=== PATIENT | female | born 1930 | race Caucasian/White ===

== ENCOUNTER 2016-09-16 11:56 | Inpatient (IN) | payer MEDICARE, BC ==
[2016-09-16] MEDS ORDERED: DUONEB 0.5-3 MG/3 ml Neb IH ONE ×2 (12:14→12:20)
--- NOTE | 2016-09-16 12:14 | ERPHSYRPT ---
- History of Present Illness Time Seen by Provider: 09/16/16 12:10 Source: patient, EMS, senior care records Exam Limitations: other (dementia) Physician History: This is a 86-year-old white female sent from the senior care with complaints of wheezes shortness of breath symptoms for 3 days. Patient had apparently recently finished Macrobid and Tamiflu secondary to influenza. Patient was noted to have increasing shortness of breath cough, worsening of confusion. Therefore sent in for evaluation. Patient arrives she is alert to her name and her birthday. She denies any pain she states she is short of breath she has obvious loose cough and is mildly tachypneic. Past medical history includes dementia, coronary artery disease, hypercholesterolemia, high blood pressure, COPD, diabetes type 2, hypothyroidism , depression, overactive bladder, sleep apnea, diabetic neuropathy, angina, colon cancer.. Past surgical history includes appendectomy, colon resection, hysterectomy. Social history patient does not have a history of tobacco alcohol or illicit drug use. Timing/Duration: day(s) (3 days) Activities at Onset: none Severity of Dyspnea-Max: moderate Severity of Dyspnea-Current: moderate Possible Cause: occasional episodes (recently treated for influenza) Modifying Factors: Improves With: nothing Associated Symptoms: cough, productive cough, No chest pain/discomfort, No edema , No fever, No insomnia, No lightheadedness, No weakness, No ankle swelling, No chills, No calf pain, No heaviness, No heart racing, No lightheadedness International travel in last 2 weeks: No Allergies/Adverse Reactions: cephalexin Allergy (Verified 09/16/16 13:35) codeine Allergy (Verified 09/16/16 13:35) latex Allergy (Verified 09/16/16 13:35) meperidine Allergy (Verified 09/16/16 13:35) Sulfa (Sulfonamide Antibiotics) Allergy (Verified 09/16/16 13:35) Home Medications: Acetaminophen 325 mg [Tylenol 325 mg] 650 mg PO Q4-6HPRN PRN 09/15/15 [ History] Atorvastatin Calcium 80 mg PO HS 09/15/15 [History] Bifidobacterium Infantis [Align] 4 mg PO DAILY 09/15/15 [History] Cholestyramine Light 4 gm [QUESTRAN Light 4 GM Packet] 4 gm PO DAILY PRN PRN 09/15/15 [History] Gabapentin 100 mg PO HS 09/15/15 [History] Insulin Detemir [Levemir Flexpen] 40 unit SQ DAILY 09/15/15 [History] Isosorbide Mononitrate 60 mg [Imdur 60MG] 60 mg PO DAILY 09/15/15 [History] Levothyroxine Sodium [Synthroid] 200 mcg PO DAILY 09/15/15 [History] Loperamide HCl [Imodium A-D] 2 mg PO DAILY PRN PRN 09/15/15 [History] Losartan Potassium [Cozaar] 100 mg PO DAILY 09/15/15 [History] Memantine HCl [Namenda Xr] 7 mg PO HS 09/15/15 [History] Mirabegron [Myrbetriq] 25 mg PO DAILY 09/15/15 [History] Nebivolol HCl [Bystolic] 10 mg PO BID 09/15/15 [History] Potassium Chloride 10 Meq Tab* [Klor Con 10 MEQ] 10 meq PO DAILY 09/15/15 [ History] Torsemide [Demadex] 5 mg PO DAILY 09/15/15 [History] Ubidecarenone [Coenzyme Q10] 100 mg PO DAILY 09/15/15 [History] Venlafaxine HCl [Effexor Xr] 150 mg PO BID 09/15/15 [History] Hx Tetanus, Diphtheria Vaccination/Date Given: No Hx Influenza Vaccination/Date Given: No Hx Pneumococcal Vaccination/Date Given: Yes - Review of Systems Constitutional: No Fever, No Chills Eyes: No Symptoms Ears, Nose, & Throat: No Symptoms, No Ear Pain, No Ear Discharge, No Hearing Changes, No Tinnitus, No Nose Pain, No Nose Congestion, No Nose Discharge, No Sinus Drainage, No Epistaxis, No Mouth Pain, No Mouth Swelling, No Loose Teeth, No Throat Pain, No Throat Swelling, No Hoarse, No Painful Swallowing, No Snoring Respiratory: Cough, Dyspnea Cardiac: No Chest Pain, No Edema, No Syncope Abdominal/Gastrointestinal: No Abdominal Pain, No Nausea, No Vomiting, No Diarrhea Genitourinary Symptoms: No Symptoms Musculoskeletal: No Back Pain, No Neck Pain Skin: No Rash Neurological: No Dizziness, No Focal Weakness, No Sensory Changes Psychological: No Symptoms Endocrine: No Symptoms All Other Systems: Unable due to condition (patient with complaint of shortness and cough denies pain patient does have a history of dementia) - Past Medical History Pertinent Past Medical History: Yes Neurological History: Dementia Cardiac History: Coronary Artery Disease, High Cholesterol, Hypertension Respiratory History: COPD Endocrine Medical History: Diabetes Type II, Hypothyroidism Musculoskeletal History: No Pertinent History GI Medical History: No Pertinent History History: No Pertinent History Psycho-Social History: Depression Female Reproductive Disorders: No Pertinent History Other Medical History: overactive bladder, sleep apnea, diabetic neuropathy, angina, colon CA - Past Surgical History Past Surgical History: No Gastrointestinal: Appendectomy, Colon Resection Female Surgical History: Hysterectomy Other Surgical History: unknown - Social History Smoking Status: Never smoker Exposure to second hand smoke: No Drug Use: none Patient Lives Alone: No (senior care) - Nursing Vital Signs Nursing Vital Signs: Initial Vital Signs Temperature 98 F Temperature Source Oral Pulse Rate 85 Respiratory Rate 20 Blood Pressure [] 140/65 Pain Intensity 0 - Physical Exam General Appearance: moderate distress, alert Eye Exam: PERRL/EOMI, other (fundi unremarkable) Ears, Nose, Throat Exam: hearing grossly normal, normal ENT inspection, normal pharynx, No abnormal TM (R), No abnormal TM (L), No sinus pain/drainage, No hearing decreased, No nasal congestion, No pharyngeal erythema, No tonsillar exudate, No tonsillar swelling Neck Exam: normal inspection, non-tender, supple Respiratory Exam: diminished breath sounds, rhonchi, wheezing Cardiovascular/Chest Exam: normal heart sounds, regular rate/rhythm Abdominal/Gastrointestinal Exam: soft, No tenderness, No distention, No mass Extremity Exam: non-tender, normal range of motion, normal inspection, no calf tenderness, no pedal edema Peripheral Pulses Exam: dorsalis-pedis (R): 2+, dorsalis-pedis (L): 2+ Neurologic Exam: alert, interpretive program coordinator II-XII nml as tested, sensation nml, confusion, No oriented x 3 (oriented to person), No motor deficits, No motor weakness Skin Exam: normal color, warm, No dry SpO2 Interpretation: normal (95% on 3l) - Course Nursing assessment & vital signs reviewed: Yes EKG Interpreted by Me: RATE (68 bpm), Sinus Rhythm, NORMAL AXIS, Other (EKG, sinus rhythm, 68 bpm, normal axis, no acute ST or T wave changes, essentially normal EKG compared to September 15, 2015) - Radiology Exams Chest X-ray Interpretation: Discussed w/ radiologist (Chest x-ray:new left base infiltrate/atelectasis correlate clinically) Ordered Tests: Active Orders 24 hr Category Date Time Status Drawer Maker STAT Care 09/16/16 12:14 Active EKG-ER Only STAT Care 09/16/16 12:14 Active IV Insertion STAT Care 09/16/16 12:14 Active Oxygen-ED Only NASAL CANNULA 3 lpm Care 09/16/16 12:14 Active cath [Cath for Specimen-Straight] STAT Care 09/16/16 12:48 Active CHEST 1 VIEW (PORTABLE) Stat Exams 09/16/16 12:14 Completed BLOOD CULTURE Stat Lab 09/16/16 12:30 Received CBC W DIFF Stat Lab 09/16/16 12:25 Completed CMP Stat Lab 09/16/16 12:25 Results CULTURE,SPUTUM Stat Lab 09/16/16 12:14 Uncollected Lactic Acid Urgent Lab 09/16/16 12:14 Completed Manual Differential NC Stat Lab 09/16/16 12:25 Completed NT PRO BNP Stat Lab 09/16/16 12:25 Results TROPONIN Stat Lab 09/16/16 12:25 Results UA W/ MICROSCOPIC Stat Lab 09/16/16 12:50 Completed VENOUS BLOOD GAS Urgent Lab 09/16/16 12:14 Completed Respiratory Nebulizer STAT RT 09/16/16 12:15 Completed Medication Summary Generic Name Dose Route Start Last Admin Trade Name Freq PRN Reason Stop Dose Admin Levofloxacin/Dextrose 100 mls @ 100 mls/hr 09/16/16 13:03 Levofloxacin 500mg/100ml D5w IV 09/16/16 14:02 STAT ONE Sodium Chloride 1,000 mls @ 100 mls/hr 09/16/16 13:30 Sodium Chloride 0.9% 1000 Ml IV 10/16/16 13:29 .Q10H ANGELICA Discontinued Medications Generic Name Dose Route Start Last Admin Trade Name Freq PRN Reason Stop Dose Admin Albuterol/Ipratropium 3 ml 09/16/16 12:14 09/16/16 12:25 Duoneb 0.5-3 Mg/3 Ml Neb IH 09/16/16 12:15 3 ml STAT ONE Administration Albuterol/Ipratropium Confirm 09/16/16 12:20 Duoneb 0.5-3 Mg/3 Ml Neb Administered 09/16/16 12:21 Dose 3 ml IH .STK-MED ONE Lab/Rad Data: Laboratory Result Diagrams 09/16/16 12:25 09/16/16 12:25 Laboratory Results 09/16/16 09/16/16 09/16/16 Range/Units 12:50 12:25 12:25 WBC 11.0 H (4.0-10.5) K/mm3 RBC 3.93 L (4.1-5.4) M/mm3 Hgb 10.3 L (12.0-16.0) gm/dl Hct 32.5 L (35-47) % MCV 82.7 (78-100) fl MCH 26.2 (26-32) pg MCHC 31.7 L (32-36) g/dl RDW 15.8 H (11.5-14.0) % Plt Count 265 (150-450) K/mm3 MPV 9.9 H (6-9.5) fl Segmented Neutrophils 70 H (36.0-66.0) % Band Neutrophils 14 H (0.0-2.0) % Lymphocytes (Manual) 15 L (24-44) % Monocytes (Manual) 1 (0.0-12.0) % Differential Comment ABNORMAL Platelet Estimate NORMAL (NORMAL) Poikilocytosis 1+ Anisocytosis 2+ Ovalocytes RARE VBG pH (7.32-7.42) VBG pCO2 at Pat Temp (42-55) mm/Hg VBG pO2 at Pat Temp (25-40) mm/Hg VBG HCO3 (22-28) meq/L VBG O2 Sat ([place]) (95-100) VBG Base Excess (-2.0-2.0) VBG Hemoglobin VBG Carboxyhemoglobin (0.0-6.9) % T HGB POC Potassium (3.5-5.1) Sodium 133 L (136-145) mEq/L Potassium 4.8 (3.5-5.1) mEq/L Chloride 100 (98-107) mEq/L Carbon Dioxide 22.6 (21-32) mEq/L Anion Gap 15.2 H (5-15) MEQ/L BUN 45 H (9-20) mg/dL Creatinine 2.81 H (0.55-1.30) mg/dl Estimated GFR 17 ML/MIN Glucose 181 H (70-110) MG/DL Lactic Acid (0.4-2.0) Calcium 8.7 (8.5-10.1) mg/dL Total Bilirubin 0.6 (0.2-1.0) mg/dL AST 16 (15-37) U/L ALT Pending Alkaline Phosphatase 122 H (46-116) U/L Troponin I < 0.017 (0.000-0.056) ng/ml NT-Pro-B Natriuret Pep 4989 H (0-450) pg/ml Serum Total Protein 7.4 (6.4-8.2) gm/dL Albumin 2.6 L (3.4-5.0) g/dL Ur Collection Type CATH Urine Color YELLOW (YELLOW) Urine Appearance CLOUDY (CLEAR) Urine pH 5.0 (5-6) Ur Specific [place] 1.020 (1.005-1.025) Urine Protein 30 (Negative) Urine Glucose (UA) NEGATIVE (NEGATIVE) mg/dL Urine Ketones NEGATIVE (NEGATIVE) Urine Nitrite NEGATIVE (NEGATIVE) Urine Bilirubin NEGATIVE (NEGATIVE) Urine Urobilinogen 0.2 (0-1) mg/dL Urine WBC (Auto) NEGATIVE (NEGATIVE) Urine RBC (Auto) TRACE HEMOLYZED (0-5) [place]/ul Urine Microscopic RBC 0-2 (0-2) /HPF Urine Microscopic WBC 0-2 (0-5) /HPF Amorphous Crystals FEW (NEGATIVE) /HPF Urine Bacteria FEW (NEGATIVE) /HPF Specimen Received 09/16/16 1250 09/16/16 Range/Units 12:14 WBC (4.0-10.5) K/mm3 RBC (4.1-5.4) M/mm3 Hgb (12.0-16.0) gm/dl Hct (35-47) % MCV (78-100) fl MCH (26-32) pg MCHC (32-36) g/dl RDW (11.5-14.0) % Plt Count (150-450) K/mm3 MPV (6-9.5) fl Segmented Neutrophils (36.0-66.0) % Band Neutrophils (0.0-2.0) % Lymphocytes (Manual) (24-44) % Monocytes (Manual) (0.0-12.0) % Differential Comment Platelet Estimate (NORMAL) Poikilocytosis Anisocytosis Ovalocytes VBG pH 7.37 (7.32-7.42) VBG pCO2 at Pat Temp 41 L (42-55) mm/Hg VBG pO2 at Pat Temp 46 H (25-40) mm/Hg VBG HCO3 23.7 (22-28) meq/L VBG O2 Sat ([place]) 83.8 L (95-100) VBG Base Excess -1.5 (-2.0-2.0) VBG Hemoglobin 10.6 VBG Carboxyhemoglobin 2.3 (0.0-6.9) % T HGB POC Potassium 4.8 (3.5-5.1) Sodium (136-145) mEq/L Potassium (3.5-5.1) mEq/L Chloride (98-107) mEq/L Carbon Dioxide (21-32) mEq/L Anion Gap (5-15) MEQ/L BUN (9-20) mg/dL Creatinine (0.55-1.30) mg/dl Estimated GFR ML/MIN Glucose (70-110) MG/DL Lactic Acid 1.1 (0.4-2.0) Calcium (8.5-10.1) mg/dL Total Bilirubin (0.2-1.0) mg/dL AST (15-37) U/L ALT Alkaline Phosphatase (46-116) U/L Troponin I (0.000-0.056) ng/ml NT-Pro-B Natriuret Pep (0-450) pg/ml Serum Total Protein (6.4-8.2) gm/dL Albumin (3.4-5.0) g/dL Ur Collection Type Urine Color (YELLOW) Urine Appearance (CLEAR) Urine pH (5-6) Ur Specific [place] (1.005-1.025) Urine Protein (Negative) Urine Glucose (UA) (NEGATIVE) mg/dL Urine Ketones (NEGATIVE) Urine Nitrite (NEGATIVE) Urine Bilirubin (NEGATIVE) Urine Urobilinogen (0-1) mg/dL Urine WBC (Auto) (NEGATIVE) Urine RBC (Auto) (0-5) [place]/ul Urine Microscopic RBC (0-2) /HPF Urine Microscopic WBC (0-5) /HPF Amorphous Crystals (NEGATIVE) /HPF Urine Bacteria (NEGATIVE) /HPF Specimen Received - Progress Progress: improved Air Movement: fair Progress Note: 09/16/16 13:40 Patient appears to be somewhat improved after DuoNeb treatment however still with diffuse rhonchi and wheezes. Patient with a left lower lobe atelectasis versus infiltrate she hasn't had recent influenza EKG normal sinus rhythm 68 bpm no acute changes essentially normal EKG Patient's chemistry is remarkable for increased BUN and creatinine of 45 and 2.8 one glucose is 181 sodium is 133 potassium 4.8 chloride 100 bicarbonate 22.6 Troponin is within normal limits white count is 11.0 hemoglobin 10.3 hematocrit 32.5 Urinalysis is negative BNP is elevated at 4989 blood and sputum cultures have been ordered Levaquin 500 mg IV has been ordered. . Patient's serum lactate was ordered and was within normal limits of 1.1 Case is discussed with Dr. Laron Leung will admit patient for COPD with exacerbation and pneumonia. Will continue IV normal saline continue breathing treatments will start patient on vancomycin will begin on floor have pharmacy to calculate dose and frequency. - Departure Time of Disposition: 13:43 Departure Disposition: Observation Clinical Impression: COPD with exacerbation, Shortness of breath, Renal failure Pneumonia Qualifiers: Pneumonia type: due to unspecified organism Laterality: left Lung location: lower lobe of lung Qualified Code(s): J18.1 - Lobar pneumonia, unspecified organism Condition: Fair Critical Care Time: No Instructions: Chronic Obstructive Pulmonary Disease
[2016-09-16 12:32] LABS: Lactic Acid 1.1 (0.4-2.0); VBG BASE EXCESS -1.5 (-2.0-2.0); VBG CARBOXYHEMOGLOBIN 2.3 % T HGB (0.0-6.9); VBG HCO3- 23.7 meq/L (22-28); VBG HEMOGLOBIN 10.6; VBG O2 SATURATION 83.8 (95-100); VBG POTASSIUM 4.8 (3.5-5.1); VBG pH 7.37 (7.32-7.42)
[2016-09-16 12:37] LABS: Mean Cell Volume 82.7 fl (78-100); Mean Corpuscular Hemoglobin 26.2 pg (26-32); Mean Platelet Volume 9.9 fl (6-9.5); Platelet Count 265 K/mm3 (150-450); Red Blood Count 3.93 M/mm3 (4.1-5.4); Red Cell Distribution Width 15.8 % (11.5-14.0)
--- NOTE | 2016-09-16 12:40 | XRAY ---
Indication: Cough and short of breath. Comparison: September 15, 2015. Portable chest again demonstrates chronic lung markings with new left base lung infiltrate/atelectasis. No consolidation or large effusion. Previous right midlung nodularity not seen. Heart is not enlarged for AP portable technique. Bony thorax intact again with osteopenia and degenerative changes. Impression: New left base infiltrate/atelectasis. Correlate clinically.
[2016-09-16 12:55] LABS: Collection Type CATH
[2016-09-16 12:56] LABS: COMPLETE URINE MICROSCOPIC? YES
[2016-09-16] MEDS ORDERED: Levofloxacin 500MG/100ML D5W 100 ML IV ONE ×2 (13:03→13:40)
[2016-09-16 13:05] LABS: ANISOCYTOSIS 2+; BAND 14 % (0.0-2.0); Platelet Estimate NORMAL (NORMAL); Poikilocytosis 1+; Total Cells Counted 100
[2016-09-16 13:06] LABS: Ovalocytes RARE
[2016-09-16 13:07] LABS: Bacteria FEW /HPF (NEGATIVE); WBC 0-2 /HPF (0-5)
[2016-09-16 13:09] LABS: ALBUMIN 2.6 g/dL (3.4-5.0); ALKALINE PHOSPHATASE 122 U/L (46-116); ANION GAP 15.2 MEQ/L (5-15); BILIRUBIN,TOTAL 0.6 mg/dL (0.2-1.0); BLOOD UREA NITROGEN 45 mg/dL (9-20); CHLORIDE 100 mEq/L (98-107); Carbon Dioxide 22.6 mEq/L (21-32); Glucose 181 MG/DL (70-110); Potassium 4.8 mEq/L (3.5-5.1); SGOT/AST 16 U/L (15-37); SODIUM 133 mEq/L (136-145); Total Protein 7.4 gm/dL (6.4-8.2)
[2016-09-16 13:22] LABS: TROPONIN < 0.017 ng/ml (0.000-0.056)
[2016-09-16] MEDS ORDERED: Sodium Chloride 0.9% 1000 ML 1,000 ML IV SCH (13:30)
[2016-09-16] MEDS ORDERED: Sodium Chloride 0.9% 1000 ML 1,000 ML ONE (13:40)
[2016-09-16 13:53] LABS: SGPT/ALT 7 U/L (12-78)
[2016-09-16] MEDS ORDERED: PHARMACY DOSING REQUIRED: VANCOMYCIN IV ONE (14:42)
[2016-09-16] MEDS ORDERED: Zofran 4 MG/2 ML VIAL IV PRN (14:42)
[2016-09-16] MEDS: DUONEB 0.5-3 MG/3 ml Neb IH PRN ×2 (15:52→23:56)
--- NOTE | 2016-09-16 16:58 | PCM.HP ---
History of Present Illness - Chief Complaint Chief Complaint: Exac. COPD, Pneumonia, CHF Date: 09/16/16 History of Present Illness: is a 86 year old female. who had influenza A 2 weeks ago and was initially improving last week before beginning to worsen again over the last 2 days. She has been more dyspneic confused using her oxygen and weaker. She developed fever at [facility] and was sent to ED for further treatment. - Review of Systems Constitutional: Fever, Chills, Fatigue, Lethargy Eyes: No Itchy Ears, Nose, & Throat: No Ear Discharge Respiratory: Cough, Short Of Breath, No Orthopnea Cardiac: Chest Pain, Palpitations, No Edema Abdominal/Gastrointestinal: Abdominal Pain, Nausea, Diarrhea, No Vomiting Genitourinary Symptoms: No Dysuria, No Frequency, No Hematuria Musculoskeletal: Arthralgias, Back Pain, Myalgias Skin: No Cellulitis, No Decubiti Neurological: No Focal Weakness, No Speech Changes Psychological: Depression, No Drug Abuse Endocrine: No Polyuria, No Polydipsia Hematologic/Lymphatic: No Blood Clots Medications & Allergies Home Medications: Home Medication List Acetaminophen 325 mg [Tylenol 325 mg] 650 mg PO Q4-6HPRN PRN 09/15/15 [ History Confirmed 09/16/16] Atorvastatin Calcium 80 mg PO HS 09/15/15 [History Confirmed 09/16/16] Bifidobacterium Infantis [Align] 4 mg PO DAILY 09/15/15 [History Confirmed 09/16] Gabapentin 100 mg PO HS 09/15/15 [History Confirmed 09/16/16] Insulin Detemir [Levemir Flexpen] 40 unit SQ DAILY 09/15/15 [History Confirmed 09/16/16] Isosorbide Mononitrate 60 mg [Imdur 60MG] 60 mg PO DAILY 09/15/15 [History Confirmed 09/16/16] Loperamide HCl [Imodium A-D] 2 mg PO DAILY 09/15/15 [History Confirmed 09/16/16] Losartan Potassium [Cozaar] 100 mg PO DAILY 09/15/15 [History Confirmed 09/16/16 ] Memantine HCl [Namenda Xr] 7 mg PO HS 09/15/15 [History Confirmed 09/16/16] Mirabegron [Myrbetriq] 25 mg PO DAILY 09/15/15 [History Confirmed 09/16/16] Nebivolol HCl [Bystolic] 10 mg PO BID 09/15/15 [History Confirmed 09/16/16] Potassium Chloride 10 Meq Tab* [Klor Con 10 MEQ] 10 meq PO DAILY 09/15/15 [ History Confirmed 09/16/16] Torsemide [Demadex] 5 mg PO DAILY 09/15/15 [History Confirmed 09/16/16] Ubidecarenone [Coenzyme Q10] 100 mg PO DAILY 09/15/15 [History Confirmed ] Venlafaxine HCl [Effexor Xr] 150 mg PO BID 09/15/15 [History Confirmed 09/16/16] Aspirin [[place] Aspirin] 81 mg PO DAILY 09/16/16 [History Confirmed 09/16/16 ] Bifidobacterium Infantis [Align] 4 mg PO DAILY 09/16/16 [History Confirmed 09/16] Cyanocobalamin 500 Mcg [Vitamin B-12 500 MCG] 1,000 mcg PO DAILY 09/16/16 [History Confirmed 09/16/16] Ferrous Sulfate 325 mg [Feosol 325 mg] 325 mg PO DAILY 09/16/16 [History Confirmed 09/16/16] Ibuprofen 200 mg [Motrin 200 mg] 200 mg PO Q8HPRN PRN 09/16/16 [History Confirmed 09/16/16] Levothyroxine Sodium 100 Mcg [Synthroid 100 Mcg] 100 mcg PO DAILY 09/16/16 [History Confirmed 09/16/16] Prednisone 20 mg [Deltasone 20 mg] 20 mg PO DAILY 09/16/16 [History Confirmed 09/16/16] Ubidecarenone/Vit E Acetate [Co Q-10 100 mg Softgel] 1 each PO DAILY 09/16/16 [ History Confirmed 09/16/16] Allergies/Adverse Reactions: Allergies Allergy/AdvReac Type Severity Reaction Status Date / Time cephalexin Allergy Verified 09/16/16 13:35 codeine Allergy Verified 09/16/16 13:35 latex Allergy Verified 09/16/16 13:35 meperidine Allergy Verified 09/16/16 13:35 Sulfa (Sulfonamide Allergy Verified 09/16/16 13:35 Antibiotics) - Past Medical History Past Medical History: Yes Neurological History: Dementia Cardiac History: Coronary Artery Disease, High Cholesterol, Hypertension Respiratory History: COPD Endocrine Medical History: Diabetes Type II, Hypothyroidism Musculoskelatal History: No Pertinent History GI Medical History: No Pertinent History History: No Pertinent History Pyscho-Social History: Depression Reproductive Disorders: No Pertinent History Comment: overactive bladder, sleep apnea, diabetic neuropathy, angina, colon CA - Female History Are you now?: No - Past Surgical History Past Surgical History: No GI Surgical History: Appendectomy, Colon Resection Female Surgical History: Hysterectomy Other Surgical History: unknown - Social History Smoking Status: Never smoker Exposure to second hand smoke: No Alcohol: None Drug Use: none - Physical Exam Vital Signs: Vital Signs - 24 hr Temp Pulse Resp BP Pulse Ox 09/16/16 15:52 67 18 97 09/16/16 15:11 98.2 F 70 20 157/68 96 09/16/16 15:06 98.2 F 70 20 157/68 96 09/16/16 14:42 96 09/16/16 13:55 77 20 92/35 97 09/16/16 13:15 97 H 20 118/50 96 09/16/16 12:33 85 20 96 09/16/16 11:56 98 F 69 20 140/65 95 Oxygen-Last 24 hours O2 Percentage 3 Liters = 32% O2 Percentage 3 Liters = 32% O2 Percentage 3 Liters = 32% O2 Percentage 3 Liters = 32% O2 Percentage 3 Liters = 32% General Appearance: mild distress Neurologic Exam: alert, cooperative, No oriented x 3 Eye Exam: No scleral icterus, No pale conjunctivae Ears, Nose, Throat Exam: dry mucous membranes Neck Exam: non-tender, supple Respiratory Exam: respiratory distress, diminished breath sounds, prolonged expirations, crackles/rales, rhonchi, wheezing Cardiovascular Exam: regular rate/rhythm, No edema Gastrointestinal/Abdomen Exam: soft, normal bowel sounds, No tenderness, No mass Extremity Exam: normal inspection, No calf tenderness, No pedal edema Skin Exam: warm, dry Results - Other Procedures and Tests Respiratory Therapy 09/16/16 15:57 Respiratory Nebulizer QID Assessment/Plan (1) HCAP (healthcare-associated pneumonia) Current Visit: Yes Status: Acute Assessment & Plan: patient had Influenza A 2 weeks ago and completed a coarse of tamiflu and is worsening now after an initial improvement cover empirically for staph given recent influenza and with her residing in [facility] will start her on vanc and zosyn. She received a dose of levaquin in the ED. She usually has normal renal function baseline creatinine is 0.9 she has history of heart failure however continue hydration iv currently at 100 mL/hr monitor creatinine zosyn vanc renal dosed now heparin for dvt ppx creatinine clearance of 20 calculated currently. with her copd and wheezing she is placed on iv solu medrol at 40 q8h wean as tolerated Code(s): J18.9 - PNEUMONIA, UNSPECIFIED ORGANISM (2) Acute kidney injury Current Visit: Yes Status: Acute Code(s): N17.9 - ACUTE KIDNEY FAILURE, UNSPECIFIED (3) Acute and chronic respiratory failure Current Visit: Yes Status: Acute Qualifiers: Respiratory failure complication: hypoxia Qualified Code(s): J96.21 - Acute and chronic respiratory failure with hypoxia Code(s): J96.20 - ACUTE AND CHR RESP FAILURE, UNSP W HYPOXIA OR HYPERCAPNIA (4) COPD with exacerbation Current Visit: Yes Status: Acute Code(s): J44.1 - CHRONIC OBSTRUCTIVE PULMONARY DISEASE W (ACUTE) EXACERBATION (5) Type 2 diabetes mellitus Current Visit: Yes Status: Acute
[2016-09-16] MEDS ORDERED: TYLENOL 325 MG PO PRN (17:02)
[2016-09-16] MEDS ORDERED: IMODIUM 2 MG PO PRN (17:07)
[2016-09-16] MEDS ORDERED: MEDICATION INTERVENTION MC PRN (17:13)
[2016-09-16] MEDS: Sodium Chloride 0.9% 1000 ML 1,000 ML IV SCH (17:15)
[2016-09-16] MEDS ORDERED: Sodium Chloride 0.9% 500 ML 500 ML IV ONE (17:23)
[2016-09-16] MEDS: Zosyn 2.25 GM 2.25 GM in D5w 100ML Mini Bag 100 ML 100 ML IV SCH (17:33)
[2016-09-16] MEDS: solu-MEDROL 40 MG IV SCH (17:33)
[2016-09-16] MEDS: NovoLOG Insulin SQ PRN ×2 (17:35→22:22)
[2016-09-16] MEDS: VANCOCIN 1 GM VIAL*** 1 GM in Sodium Chloride 0.9% 250 ML 250 ML IV SCH (18:48)
[2016-09-16] MEDS: DUONEB 0.5-3 MG/3 ml Neb IH SCH (19:48)
[2016-09-16] MEDS ORDERED: NON-FORMULARY ITEM (Atorvastatin Calcium [Atorvastatin Calcium] 80 MG) PO SCH (22:00)
[2016-09-16] MEDS ORDERED: MEMANTINE HCL 7 MG PO SCH (22:00)
[2016-09-16] MEDS ORDERED: NON-FORMULARY ITEM (Venlafaxine Hcl [Effexor Xr] 150 MG) PO SCH (22:00)
[2016-09-16] MEDS ORDERED: NON-FORMULARY ITEM (Nebivolol Hcl [Bystolic] 10 MG) PO SCH (22:00)
[2016-09-16] MEDS: Heparin 5000 UNITS/0.5 ML (HIGH RISK MED) SQ SCH (22:20)
[2016-09-16] MEDS: ZOCOR 20MG PO SCH (22:21)
[2016-09-16] MEDS: Namenda 5 MG PO SCH (22:21)
[2016-09-16] MEDS: Effexor XR 75 MG PO SCH (22:21)
[2016-09-16] MEDS: Neurontin 100 MG PO SCH (22:21)
[2016-09-16] MEDS: Bystolic 5 MG PO SCH (22:21)
[2016-09-17] MEDS: solu-MEDROL 40 MG IV SCH ×3 (02:06→17:59)
[2016-09-17] MEDS: Zosyn 2.25 GM 2.25 GM in D5w 100ML Mini Bag 100 ML 100 ML IV SCH ×3 (02:06→17:59)
[2016-09-17] MEDS: DUONEB 0.5-3 MG/3 ml Neb IH PRN (03:59)
[2016-09-17] MEDS: Sodium Chloride 0.9% 1000 ML 1,000 ML IV SCH ×2 (05:46→15:58)
[2016-09-17 06:00] LABS: Mean Cell Volume 81.5 fl (78-100); Mean Corpuscular Hemoglobin 25.8 pg (26-32); Mean Platelet Volume 9.8 fl (6-9.5); Platelet Count 245 K/mm3 (150-450); Red Blood Count 3.72 M/mm3 (4.1-5.4); Red Cell Distribution Width 15.6 % (11.5-14.0)
[2016-09-17 06:46] LABS: ALBUMIN 2.5 g/dL (3.4-5.0); ALKALINE PHOSPHATASE 116 U/L (46-116); ANION GAP 19.5 MEQ/L (5-15); BILIRUBIN,TOTAL 0.3 mg/dL (0.2-1.0); BLOOD UREA NITROGEN 45 mg/dL (9-20); CHLORIDE 102 mEq/L (98-107); Glucose 166 MG/DL (70-110); Potassium 4.1 mEq/L (3.5-5.1); SGOT/AST 14 U/L (15-37); SODIUM 138 mEq/L (136-145); Total Protein 7.2 gm/dL (6.4-8.2)
[2016-09-17] MEDS: DUONEB 0.5-3 MG/3 ml Neb IH SCH ×4 (07:07→20:58)
[2016-09-17 07:24] LABS: BAND 6 % (0.0-2.0); Total Cells Counted 100
[2016-09-17 07:25] LABS: ANISOCYTOSIS 1+; Platelet Estimate NORMAL (NORMAL); Poikilocytosis 1+
[2016-09-17 07:26] LABS: Schistocytes 1+; Toxic Granulation 1+
[2016-09-17 07:44] LABS: SGPT/ALT < 6 U/L (12-78)
[2016-09-17] MEDS: FEOSOL 325 MG PO SCH (09:15)
[2016-09-17] MEDS: Effexor XR 75 MG PO SCH ×2 (09:15→22:31)
[2016-09-17] MEDS: ECOTRIN 81 MG PO SCH (09:15)
[2016-09-17] MEDS: Imdur 60MG PO SCH (09:15)
[2016-09-17] MEDS: Vitamin B-12 500 MCG PO SCH (09:16)
[2016-09-17] MEDS: Heparin 5000 UNITS/0.5 ML (HIGH RISK MED) SQ SCH ×2 (09:16→22:32)
[2016-09-17] MEDS: Bystolic 5 MG PO SCH ×2 (09:16→22:31)
[2016-09-17] MEDS: SYNTHROID 100 MCG PO SCH (09:16)
[2016-09-17] MEDS: Namenda 5 MG PO SCH ×2 (09:16→22:32)
[2016-09-17] MEDS: Lantus Insulin SQ SCH (09:17)
[2016-09-17] MEDS: Acidophilus TABLET PO SCH (09:21)
[2016-09-17] MEDS ORDERED: INSULIN DETEMIR 40 UNIT SQ SCH (10:00)
[2016-09-17] MEDS ORDERED: UBIDECARENONE 100 MG PO SCH (10:00)
[2016-09-17] MEDS ORDERED: LOPERAMIDE HCL 2 MG PO SCH (10:00)
[2016-09-17] MEDS ORDERED: BIFIDOBACTERIUM INFANTIS 4 MG PO SCH (10:00)
[2016-09-17] MEDS: NovoLOG Insulin SQ PRN ×2 (11:59→22:33)
--- NOTE | 2016-09-17 15:30 | PCM.NOTE ---
Date and Time: 09/17/16 1524 Subjective Assessment: Pt has no complaints. States her breathing is better. Pleasantly confused. - Review of Systems Constitutional: No Fever Objective Exam General Appearance: no apparent distress Neurologic Exam: alert, cooperative, other (oriented to place but not time.) Skin Exam: normal color, warm, dry Respiratory Exam: normal breath sounds, lungs clear, No crackles/rales, No rhonchi, No wheezing Cardiovascular Exam: regular rate/rhythm, normal heart sounds, murmur (III/ sys murmur) Extremity Exam: No pedal edema, No swelling Back Exam: normal inspection OBJECTIVE DATA Vital Signs: Vital Signs - 24 hr Temp Pulse Resp BP Pulse Ox 09/17/16 15:17 74 22 97 09/17/16 11:44 22 09/17/16 11:34 88 22 96 09/17/16 11:10 97.7 F 82 20 144/70 96 09/17/16 08:00 22 09/17/16 07:25 95 F 74 22 168/67 95 09/17/16 07:09 77 22 97 09/17/16 04:00 97.9 F 71 22 124/60 97 09/17/16 03:59 71 23 95 09/17/16 00:00 26 H 09/16/16 23:56 75 22 95 09/16/16 23:48 97.9 F 72 66 H 156/65 98 09/16/16 20:00 24 09/16/16 19:57 98.0 F 63 24 144/60 96 09/16/16 19:48 69 20 98 09/16/16 15:52 67 18 97 Oxygen-Last 24 hours O2 Percentage 3 Liters = 32% O2 Percentage 3 Liters = 32% O2 Percentage 3 Liters = 32% O2 Percentage 3 Liters = 32% O2 Percentage 3 Liters = 32% Pain Assessment - Last Documented Pain Intensity 3 Pain Scale Used 0-10 Pain Scale Intake and Output: Intake & Output 09/15/16 09/16/16 09/17/16 09/18/16 11:59 11:59 11:59 11:59 Intake Total 3210 360 Output Total 600 Balance 3210 -240 Weight 93.44 kg Lab Results: Accuchecks Date 09/17/16 Date 09/17/16 Date 09/17/16 Date 09/17/16 Date 09/17/16 Date 09/16/16 Date 09/16/16 Time 11:30 Time 08:00 Time 08:00 Time 04:00 Time 00:00 Time 20:00 Time 16:30 Accucheck Value: 266 Accucheck Value: 176 Accucheck Value: 176 Accucheck Value: 173 Accucheck Value: 274 Accucheck Value: 371 Accucheck Value: 232 Lab Results-Last 24 Hours 09/17/16 09/17/16 Range/Units 05:30 05:30 WBC 11.0 H (4.0-10.5) K/mm3 RBC 3.72 L (4.1-5.4) M/mm3 Hgb 9.6 L (12.0-16.0) gm/dl Hct 30.3 L (35-47) % MCV 81.5 (78-100) fl MCH 25.8 L (26-32) pg MCHC 31.7 L (32-36) g/dl RDW 15.6 H (11.5-14.0) % Plt Count 245 (150-450) K/mm3 MPV 9.8 H (6-9.5) fl Segmented Neutrophils 87 H (36.0-66.0) % Band Neutrophils 6 H (0.0-2.0) % Lymphocytes (Manual) 7 L (24-44) % Toxic Granulation 1+ Platelet Estimate NORMAL (NORMAL) Poikilocytosis 1+ Anisocytosis 1+ Acanthocytes (Spur) 2+ Schistocytes 1+ Sodium 138 (136-145) mEq/L Potassium 4.1 (3.5-5.1) mEq/L Chloride 102 (98-107) mEq/L Carbon Dioxide 21.0 (21-32) mEq/L Anion Gap 19.5 H (5-15) MEQ/L BUN 45 H (9-20) mg/dL Creatinine 2.37 H (0.55-1.30) mg/dl Estimated GFR 21 ML/MIN Glucose 166 H (70-110) MG/DL Calcium 9.0 (8.5-10.1) mg/dL Total Bilirubin 0.3 (0.2-1.0) mg/dL AST 14 L (15-37) U/L ALT < 6 L (12-78) U/L Alkaline Phosphatase 116 (46-116) U/L Serum Total Protein 7.2 (6.4-8.2) gm/dL Albumin 2.5 L (3.4-5.0) g/dL Assessment/Plan (1) HCAP (healthcare-associated pneumonia) Current Visit: Yes Status: Acute Assessment & Plan: On zosyn and levaquin. Her breathing is stable, she is on 3L NC with sats in the 90s. Code(s): J18.9 - PNEUMONIA, UNSPECIFIED ORGANISM (2) Acute kidney injury Current Visit: Yes Status: Acute Assessment & Plan: Cr improved from 2.81 to 2.37 overnight. Her IVF were stopped for several hours over concern about fluid overload; will restart at 80cc/hr and give some lasix now. Code(s): N17.9 - ACUTE KIDNEY FAILURE, UNSPECIFIED (3) Type 2 diabetes mellitus Current Visit: Yes Status: Acute Qualifiers: Diabetes mellitus meterman insulin use: with meterman use Assessment & Plan: accuchecks ac/hs; BS 173-371 (pt is on IV steroids). Will increase lantus if needed over the next several days, slowly. (4) Dementia Current Visit: Yes Status: Chronic Qualifiers: Alzheimer's disease onset: unspecified onset Dementia behavioral disturbance: without behavioral disturbance Code(s): F03.90 - UNSPECIFIED DEMENTIA WITHOUT BEHAVIORAL DISTURBANCE
[2016-09-17] MEDS: Ativan 0.5 MG PO PRN ×2 (15:57→22:31)
[2016-09-17] MEDS: Lasix 40 MG/4 ML IV SCH (15:57)
[2016-09-17] MEDS: ZOCOR 20MG PO SCH (22:31)
[2016-09-17] MEDS: Neurontin 100 MG PO SCH (22:31)
[2016-09-18] MEDS: Sodium Chloride 0.9% 1000 ML 1,000 ML IV SCH ×2 (00:35→22:30)
[2016-09-18] MEDS: solu-MEDROL 40 MG IV SCH ×3 (02:29→17:40)
[2016-09-18] MEDS: Zosyn 2.25 GM 2.25 GM in D5w 100ML Mini Bag 100 ML 100 ML IV SCH ×3 (02:29→17:39)
[2016-09-18 05:53] LABS: Granulocytes % 90.4 % (36.0-66.0); Lymphocytes % 5.7 % (24.0-44.0); Mean Cell Volume 82.1 fl (78-100); Mean Platelet Volume 9.7 fl (6-9.5); Monocytes % 3.9 % (0.0-12.0); Platelet Count 245 K/mm3 (150-450); Red Blood Count 3.69 M/mm3 (4.1-5.4); Red Cell Distribution Width 15.6 % (11.5-14.0); White Blood Count 11.3 K/mm3 (4.0-10.5)
[2016-09-18 06:14] LABS: Carbon Dioxide 24.5 mEq/L (21-32); Potassium 3.7 mEq/L (3.5-5.1)
[2016-09-18] MEDS: VANCOCIN 1 GM VIAL*** 1 GM in Sodium Chloride 0.9% 250 ML 250 ML IV SCH (06:29)
[2016-09-18 07:00] LABS: BAND 2 % (0.0-2.0); Total Cells Counted 100
[2016-09-18 07:01] LABS: ANISOCYTOSIS 1+; Platelet Estimate NORMAL (NORMAL); Poikilocytosis 1+
[2016-09-18] MEDS: DUONEB 0.5-3 MG/3 ml Neb IH SCH ×4 (07:07→19:23)
[2016-09-18] MEDS: Lasix 40 MG/4 ML IV SCH (10:17)
[2016-09-18] MEDS: Heparin 5000 UNITS/0.5 ML (HIGH RISK MED) SQ SCH ×2 (10:17→20:54)
[2016-09-18] MEDS: Lantus Insulin SQ SCH (10:18)
[2016-09-18] MEDS: Bystolic 5 MG PO SCH ×2 (10:47→20:54)
[2016-09-18] MEDS: ECOTRIN 81 MG PO SCH (10:47)
[2016-09-18] MEDS: Imdur 60MG PO SCH (10:47)
[2016-09-18] MEDS: Effexor XR 75 MG PO SCH ×2 (10:47→20:53)
[2016-09-18] MEDS: FEOSOL 325 MG PO SCH (10:47)
[2016-09-18] MEDS: Namenda 5 MG PO SCH ×2 (10:47→20:54)
[2016-09-18] MEDS: SYNTHROID 100 MCG PO SCH (10:47)
[2016-09-18] MEDS: Acidophilus TABLET PO SCH (10:47)
[2016-09-18] MEDS: Vitamin B-12 500 MCG PO SCH (10:47)
[2016-09-18] MEDS: NovoLOG Insulin SQ PRN ×3 (11:37→22:06)
[2016-09-18] MEDS ORDERED: Lasix 40 MG/4 ML IV ONE (13:56)
--- NOTE | 2016-09-18 13:59 | PCM.NOTE ---
Date and Time: 09/18/16 1354 Subjective Assessment: She was difficult to rouse this morning, somnolent until about noon so her po meds were held. She knows where she is again today but states, "I don't feel good." Objective Exam General Appearance: mild distress Neurologic Exam: alert, confusion Skin Exam: normal color, warm, dry Respiratory Exam: diminished breath sounds, crackles/rales (bilat bases), No rhonchi Cardiovascular Exam: regular rate/rhythm, normal heart sounds, murmur Gastrointestinal/Abdomen Exam: soft, tenderness (generalized ttp), No guarding, No rebound Extremity Exam: No pedal edema, No swelling Back Exam: normal inspection OBJECTIVE DATA Vital Signs: Vital Signs - 24 hr Temp Pulse Resp BP Pulse Ox 09/18/16 12:45 99.1 F 09/18/16 12:34 99.1 F 09/18/16 12:00 20 09/18/16 11:06 20 92 L 09/18/16 11:01 87 26 H 91 L 09/18/16 08:00 22 09/18/16 07:18 96.8 F 76 22 140/74 95 09/18/16 07:09 78 20 96 09/18/16 05:00 98.1 F 86 20 154/73 96 09/18/16 04:00 20 09/18/16 00:17 97.9 F 82 20 137/63 95 09/18/16 00:00 20 09/17/16 21:00 97.9 F 82 20 137/63 95 09/17/16 20:58 81 19 98 09/17/16 20:00 21 09/17/16 17:34 98.4 F 09/17/16 16:25 97.6 F 82 20 148/80 97 09/17/16 16:00 22 09/17/16 15:17 74 22 97 Oxygen-Last 24 hours O2 Percentage 3 Liters = 32% O2 Percentage 3 Liters = 32% O2 Percentage 3 Liters = 32% O2 Percentage 3 Liters = 32% O2 Percentage 3 Liters = 32% O2 Percentage 3 Liters = 32% Pain Assessment - Last Documented Pain Scale Used 0-10 Pain Scale Intake and Output: Intake & Output 09/16/16 09/17/16 09/18/16 09/19/16 11:59 11:59 11:59 11:59 Intake Total 240 2429 Output Total 600 Balance 240 1829 Weight 93.44 kg 98.384 kg 95.708 kg Lab Results: Accuchecks Date 09/18/16 Date 09/18/1609/17/16 Date 09/17/16 Time 11:30 Time 08:19 Time 22:00 Time 16:30 Accucheck Value: 202 Accucheck Value: 186 Accucheck Value: 201 Accucheck Value: 190 Lab Results-Last 24 Hours 09/18/16 09/18/16 Range/Units 05:35 05:35 WBC 11.3 H (4.0-10.5) K/mm3 RBC 3.69 L (4.1-5.4) M/mm3 Hgb 9.6 L (12.0-16.0) gm/dl Hct 30.3 L (35-47) % MCV 82.1 (78-100) fl MCH 26.0 (26-32) pg MCHC 31.7 L (32-36) g/dl RDW 15.6 H (11.5-14.0) % Plt Count 245 (150-450) K/mm3 MPV 9.7 H (6-9.5) fl Gran % 90.4 H (36.0-66.0) % Lymphocytes % 5.7 L (24.0-44.0) % Monocytes % 3.9 (0.0-12.0) % Eosinophils % 0.0 (0.00-5.0) % Basophils % 0.0 (0.0-0.4) % Segmented Neutrophils 89 H (36.0-66.0) % Band Neutrophils 2 (0.0-2.0) % Lymphocytes (Manual) 7 L (24-44) % Monocytes (Manual) 2 (0.0-12.0) % Basophils # 0 (0-0.4) Platelet Estimate NORMAL (NORMAL) Poikilocytosis 1+ Anisocytosis 1+ Sodium 143 (136-145) mEq/L Potassium 3.7 (3.5-5.1) mEq/L Chloride 107 (98-107) mEq/L Carbon Dioxide 24.5 (21-32) mEq/L Anion Gap 15.0 (5-15) MEQ/L BUN 39 H (9-20) mg/dL Creatinine 1.82 H (0.55-1.30) mg/dl Estimated GFR 28 ML/MIN Glucose 213 H (70-110) MG/DL Calcium 8.8 (8.5-10.1) mg/dL NT-Pro-B Natriuret Pep 8430 H (0-450) pg/ml Assessment/Plan (1) HCAP (healthcare-associated pneumonia) Current Visit: Yes Status: Acute Assessment & Plan: She is on IV vancomycin and zosyn. Code(s): J18.9 - PNEUMONIA, UNSPECIFIED ORGANISM (2) CHF (congestive heart failure) Current Visit: Yes Status: Acute Assessment & Plan: exacerbation; pt on IVF so will increase lasix. [place] michelle as pt is incontinence; track I/O. Code(s): I50.9 - HEART FAILURE, UNSPECIFIED (3) Acute kidney injury Current Visit: Yes Status: Acute Assessment & Plan: some improvement today. Repeat labs in a.m. Code(s): N17.9 - ACUTE KIDNEY FAILURE, UNSPECIFIED (4) Type 2 diabetes mellitus Current Visit: Yes Status: Acute Qualifiers: Diabetes mellitus correction insulin use: with correction use Assessment & Plan: BS in high 100s-200s, covering with SS insulin. (5) Dementia Current Visit: Yes Status: Chronic Qualifiers: Alzheimer's disease onset: unspecified onset Dementia behavioral disturbance: without behavioral disturbance Code(s): F03.90 - UNSPECIFIED DEMENTIA WITHOUT BEHAVIORAL DISTURBANCE
[2016-09-18 16:39] LABS: Bacteria RARE /HPF (NEGATIVE); COMPLETE URINE MICROSCOPIC? YES; Collection Type CATH; Epithelial Cells RARE /HPF (FEW); WBC 0-2 /HPF (0-5)
[2016-09-18] MEDS: Ativan 0.5 MG PO SCH (20:54)
[2016-09-18] MEDS: Neurontin 100 MG PO SCH (20:54)
[2016-09-18] MEDS: ZOCOR 20MG PO SCH (20:54)
[2016-09-18] MEDS ORDERED: Lasix 40 MG/4 ML IV SCH (22:00)
[2016-09-19] MEDS: Zosyn 2.25 GM 2.25 GM in D5w 100ML Mini Bag 100 ML 100 ML IV SCH ×3 (01:29→19:16)
[2016-09-19] MEDS: solu-MEDROL 40 MG IV SCH (01:29)
[2016-09-19 05:41] LABS: Mean Cell Volume 82.1 fl (78-100); Mean Platelet Volume 9.6 fl (6-9.5); Platelet Count 262 K/mm3 (150-450); Red Blood Count 4.19 M/mm3 (4.1-5.4); Red Cell Distribution Width 15.6 % (11.5-14.0); White Blood Count 10.4 K/mm3 (4.0-10.5)
[2016-09-19 06:04] LABS: Carbon Dioxide 28.6 mEq/L (21-32); Potassium 3.1 mEq/L (3.5-5.1)
[2016-09-19] MEDS: DUONEB 0.5-3 MG/3 ml Neb IH SCH ×4 (06:55→20:14)
--- NOTE | 2016-09-19 07:23 | PCM.NOTE ---
Date and Time: 09/19/16716 Subjective Assessment: she is still confused this mrmarito with a weak voice still doesn't feel well she states but unable to elaborate further. Objective Exam General Appearance: no apparent distress, obese, other (she does drink from a straw well for me this am) Neurologic Exam: alert, cooperative, No oriented x 3 Skin Exam: warm, dry, No rash Eye Exam: No scleral icterus, No pale conjunctivae Ears, Nose, Throat Exam: dry mucous membranes Neck Exam: normal inspection, non-tender, supple Respiratory Exam: crackles/rales, rhonchi, wheezing Cardiovascular Exam: regular rate/rhythm, murmur, No edema Gastrointestinal/Abdomen Exam: soft, normal bowel sounds, No tenderness Extremity Exam: normal inspection, No letty's sign OBJECTIVE DATA Vital Signs: Vital Signs - 24 hr Temp Pulse Resp BP Pulse Ox 09/19/16 06:56 69 20 93 L 09/19/16 04:00 98.2 F 74 20 131/71 95 09/19/16 00:00 98.3 F 72 22 174/90 95 09/18/16 20:00 98.5 F 87 24 172/78 94 L 09/18/16 19:24 77 24 93 L 09/18/16 16:15 99.4 F 70 22 132/68 95 09/18/16 16:00 22 09/18/16 15:42 76 20 98 09/18/16 12:45 99.1 F 09/18/16 12:34 99.1 F 09/18/16 12:00 20 09/18/16 11:06 20 92 L 09/18/16 11:01 87 26 H 91 L 09/18/16 08:00 22 09/18/16 07:18 96.8 F 76 22 140/74 95 Oxygen-Last 24 hours O2 Percentage 3 Liters = 32% O2 Percentage 3 Liters = 32% O2 Percentage 3 Liters = 32% O2 Percentage 3 Liters = 32% O2 Percentage 3 Liters = 32% O2 Percentage 3 Liters = 32% Pain Assessment - Last Documented Pain Scale Used 0-10 Pain Scale Intake and Output: Intake & Output 09/16/16 09/17/16 09/18/16 09/19/16 11:59 11:59 11:59 11:59 Intake Total 240 2429 884 Output Total 600 4800 Balance 240 1829 -3916 Weight 93.44 kg 98.384 kg 95.708 kg Lab Results: Accuchecks Date 09/18/16 Date 09/18/16 Date 09/18/16 Date 09/18/16 Time 21:30 Time 16:30 Time 11:30 Time 08:19 Accucheck Value: 290 Accucheck Value: 219 Accucheck Value: 202 Accucheck Value: 186 Lab Results-Last 24 Hours 09/18/16 09/19/16 09/19/16 Range/Units 14:30 05:10 05:10 WBC 10.4 (4.0-10.5) K/mm3 RBC 4.19 (4.1-5.4) M/mm3 Hgb 10.9 L (12.0-16.0) gm/dl Hct 34.4 L (35-47) % MCV 82.1 (78-100) fl MCH 26.0 (26-32) pg MCHC 31.7 L (32-36) g/dl RDW 15.6 H (11.5-14.0) % Plt Count 262 (150-450) K/mm3 MPV 9.6 H (6-9.5) fl Sodium 146 H (136-145) mEq/L Potassium 3.1 L (3.5-5.1) mEq/L Chloride 105 (98-107) mEq/L Carbon Dioxide 28.6 (21-32) mEq/L Anion Gap 15.0 (5-15) MEQ/L BUN 33 H (9-20) mg/dL Creatinine 1.54 H (0.55-1.30) mg/dl Estimated GFR 34 ML/MIN Glucose 249 H (70-110) MG/DL Calcium 8.6 (8.5-10.1) mg/dL NT-Pro-B Natriuret Pep 9705 H (0-450) pg/ml Ur Collection Type CATH Urine Color LT.YELLOW (YELLOW) Urine Appearance CLEAR (CLEAR) Urine pH 5.0 (5-6) Ur Specific [place] 1.010 (1.005-1.025) Urine Protein NEGATIVE (Negative) Urine Glucose (UA) NEGATIVE (NEGATIVE) mg/dL Urine Ketones NEGATIVE (NEGATIVE) Urine Nitrite NEGATIVE (NEGATIVE) Urine Bilirubin NEGATIVE (NEGATIVE) Urine Urobilinogen 0.2 (0-1) mg/dL Urine WBC (Auto) NEGATIVE (NEGATIVE) Urine RBC (Auto) TRACE-LYSED (0-5) [place]/ul Urine Microscopic RBC 0-2 (0-2) /HPF Urine Microscopic WBC 0-2 (0-5) /HPF Ur Epithelial Cells RARE (FEW) /HPF Urine Bacteria RARE (NEGATIVE) /HPF Specimen Received 09/18/16 1430 Radiology Exams: Radiology Procedures Category Date Time Status CHEST 1 VIEW (PORTABLE) Routine Exams 09/19/16 07:07 Ordered Assessment/Plan (1) HCAP (healthcare-associated pneumonia) Current Visit: Yes Status: Acute Assessment & Plan: vanc and zosyn day 4 renal function improving she sounds like she has increased pulmonary edema check cxr stop iv fluids renal function improving change lasix to po net negative 3.9 L over the last 2 days monitor i/o change iv methylprednisolone to prednisone increase lantus a little replace potassium Code(s): J18.9 - PNEUMONIA, UNSPECIFIED ORGANISM (2) Acute kidney injury Current Visit: Yes Status: Acute Code(s): N17.9 - ACUTE KIDNEY FAILURE, UNSPECIFIED (3) Acute and chronic respiratory failure Current Visit: Yes Status: Acute Qualifiers: Respiratory failure complication: hypoxia Qualified Code(s): J96.21 - Acute and chronic respiratory failure with hypoxia Code(s): J96.20 - ACUTE AND CHR RESP FAILURE, UNSP W HYPOXIA OR HYPERCAPNIA (4) COPD with exacerbation Current Visit: Yes Status: Acute Code(s): J44.1 - CHRONIC OBSTRUCTIVE PULMONARY DISEASE W (ACUTE) EXACERBATION (5) Type 2 diabetes mellitus Current Visit: Yes Status: Acute Qualifiers: Diabetes mellitus bed bug exterminator insulin use: with bed bug exterminator use
--- NOTE | 2016-09-19 09:00 | XRAY ---
Indication: Short of breath. Comparison: September 16, 2016. Portable chest demonstrates stable left base infiltrate/atelectasis with new small focus in the right mid periphery and small bibasilar effusions. Stable left lung calcified granuloma. Heart is not enlarged for AP portable technique.
[2016-09-19 09:42] LABS: Total Cells Counted 100
[2016-09-19 09:43] LABS: ANISOCYTOSIS 1+; Hypochromia 1+; Platelet Estimate NORMAL (NORMAL)
[2016-09-19] MEDS ORDERED: Klor Con 10 MEQ PO SCH (10:00)
[2016-09-19] MEDS: DELTASONE 20 MG PO SCH (10:05)
[2016-09-19] MEDS: ECOTRIN 81 MG PO SCH (10:05)
[2016-09-19] MEDS: Effexor XR 75 MG PO SCH ×2 (10:05→21:51)
[2016-09-19] MEDS: FEOSOL 325 MG PO SCH (10:05)
[2016-09-19] MEDS: Acidophilus TABLET PO SCH (10:05)
[2016-09-19] MEDS: Namenda 5 MG PO SCH ×2 (10:05→21:52)
[2016-09-19] MEDS: Lasix 40 MG PO SCH (10:06)
[2016-09-19] MEDS: Heparin 5000 UNITS/0.5 ML (HIGH RISK MED) SQ SCH ×2 (10:06→21:53)
[2016-09-19] MEDS: Ativan 0.5 MG PO SCH ×2 (10:06→21:53)
[2016-09-19] MEDS: SYNTHROID 100 MCG PO SCH (10:06)
[2016-09-19] MEDS: Bystolic 5 MG PO SCH ×2 (10:06→21:52)
[2016-09-19] MEDS: Imdur 60MG PO SCH (10:06)
[2016-09-19] MEDS: Vitamin B-12 500 MCG PO SCH (10:06)
[2016-09-19] MEDS: Lantus Insulin SQ SCH (10:07)
[2016-09-19] MEDS: NovoLOG Insulin SQ PRN ×3 (11:52→21:54)
[2016-09-19] MEDS: VANCOCIN 1 GM VIAL*** 1 GM in Sodium Chloride 0.9% 250 ML 250 ML IV SCH (17:22)
[2016-09-19] MEDS ORDERED: D5w 100ML Mini Bag 100 ML 100 ML IV ONE (18:34)
[2016-09-19] MEDS ORDERED: Zosyn 2.25 GM IV ONE (18:34)
[2016-09-19] MEDS: ZOCOR 20MG PO SCH (21:52)
[2016-09-19] MEDS: Neurontin 100 MG PO SCH (21:52)
[2016-09-20] MEDS: Sodium Chloride 0.9% 1000 ML 1,000 ML IV SCH (00:51)
[2016-09-20] MEDS: Zosyn 2.25 GM 2.25 GM in D5w 100ML Mini Bag 100 ML 100 ML IV SCH ×3 (01:48→18:31)
[2016-09-20] MEDS: DUONEB 0.5-3 MG/3 ml Neb IH SCH ×4 (05:58→19:10)
[2016-09-20 07:07] LABS: ANION GAP 14.6 MEQ/L (5-15); Carbon Dioxide 29.5 mEq/L (21-32); Potassium 3.1 mEq/L (3.5-5.1)
--- NOTE | 2016-09-20 07:45 | PCM.NOTE ---
Date and Time: 09/20/16 0738 Subjective Assessment: her confusion persists she continues to be very confused she has the continued difficulty with breathing she was up in the chair eating yesterday Objective Exam General Appearance: obese Neurologic Exam: alert, other (not oriented to place or situration), No oriented x 3 Skin Exam: warm, dry Ears, Nose, Throat Exam: dry mucous membranes Neck Exam: normal inspection, non-tender, supple Respiratory Exam: crackles/rales, rhonchi, wheezing, other (wet rales with rhonchi throughout) Cardiovascular Exam: regular rate/rhythm, murmur Gastrointestinal/Abdomen Exam: soft, normal bowel sounds, No tenderness Extremity Exam: No calf tenderness, No pedal edema OBJECTIVE DATA Vital Signs: Vital Signs - 24 hr Temp Pulse Resp BP Pulse Ox 09/20/16 06:02 62 22 93 L 09/20/16 04:00 98.2 F 62 22 152/75 95 09/20/16 00:00 98.0 F 69 19 159/72 91 L 09/19/16 20:17 70 20 94 L 09/19/16 20:00 19 09/19/16 19:29 98.0 F 72 19 173/71 92 L 09/19/16 16:00 98.2 F 71 18 136/80 93 L 09/19/16 14:48 70 18 93 L 09/19/16 12:00 98.4 F 80 18 151/70 93 L 09/19/16 10:35 76 18 93 L Oxygen-Last 24 hours O2 Percentage 3 Liters = 32% O2 Percentage 3 Liters = 32% O2 Percentage 2 Liters = 28% O2 Percentage 2 Liters = 28% O2 Percentage 2 Liters = 28% Pain Assessment - Last Documented Pain Intensity 0 Pain Scale Used 0-10 Pain Scale Intake and Output: Intake & Output 09/17/16 09/18/16 09/19/16 09/20/16 11:59 11:59 11:59 11:59 Intake Total 240 2429 884 3081 Output Total 600 4800 2600 Balance 240 9894 -9920 481 Weight 93.44 kg 98.384 kg 97.205 kg 97.205 kg Lab Results: Accuchecks Date 09/19/16 Date 09/19/16 Time 22:00 Time 11:30 Accucheck Value: 297 Accucheck Value: 227 Accucheck Value: 333 Lab Results-Last 24 Hours 09/19/16 09/20/16 Range/Units 05:10 06:20 WBC 10.4 (4.0-10.5) K/mm3 RBC 4.19 (4.1-5.4) M/mm3 Hgb 10.9 L (12.0-16.0) gm/dl Hct 34.4 L (35-47) % MCV 82.1 (78-100) fl MCH 26.0 (26-32) pg MCHC 31.7 L (32-36) g/dl RDW 15.6 H (11.5-14.0) % Plt Count 262 (150-450) K/mm3 MPV 9.6 H (6-9.5) fl Segmented Neutrophils 88 H (36.0-66.0) % Lymphocytes (Manual) 9 L (24-44) % Monocytes (Manual) 3 (0.0-12.0) % Differential Comment ABNORMAL Platelet Estimate NORMAL (NORMAL) Hypochromasia 1+ Anisocytosis 1+ Sodium 149 H (136-145) mEq/L Potassium 3.1 L (3.5-5.1) mEq/L Chloride 108 H (98-107) mEq/L Carbon Dioxide 29.5 (21-32) mEq/L Anion Gap 14.6 (5-15) MEQ/L BUN 33 H (9-20) mg/dL Creatinine 1.35 H (0.55-1.30) mg/dl Estimated GFR 39 ML/MIN Glucose 130 H (70-110) MG/DL Calcium 8.3 L (8.5-10.1) mg/dL Radiology Exams: Radiology Procedures Category Date Time Status CHEST 1 VIEW (PORTABLE) Routine Exams 09/19/16 07:07 Completed Multi-Disciplinary Progress Notes: Multi-Disciplinary Progress Notes 09/19/16 09:25 (created 09/19/16 15:41) Case Management Note by Neelima Rose DISCHARGE PLAN REVIEWED, PLAN FOR PT TO RETURN TO [facility] ON DISCHARGE. DECLINED ADDNL NEEDS. WILL CONTINUE TO FOLLOW AND ASSESS FOR ALL DC NEEDS. Initialized on 09/19/16 15:41 - END OF NOTE Assessment/Plan (1) HCAP (healthcare-associated pneumonia) Current Visit: Yes Status: Acute Assessment & Plan: today is day 5 of vanc/zosyn will complete today with iv antibiotics and hope to possible be stable enough for penitentiary tomorrow her hypertnatremia is a little worse she has bibasilar effusions that are small but also has the renal failure that is slowly improving she had positive fluid balance yesterday after large negative the 2 previous days increase the K to bid keep the lasix po at once a day monitor overnight repeat labs in am going to hold her simvastatin and her gabapentin given her confusion Code(s): J18.9 - PNEUMONIA, UNSPECIFIED ORGANISM (2) Acute kidney injury Current Visit: Yes Status: Acute Code(s): N17.9 - ACUTE KIDNEY FAILURE, UNSPECIFIED (3) Acute and chronic respiratory failure Current Visit: Yes Status: Acute Qualifiers: Respiratory failure complication: hypoxia Qualified Code(s): J96.21 - Acute and chronic respiratory failure with hypoxia Code(s): J96.20 - ACUTE AND CHR RESP FAILURE, UNSP W HYPOXIA OR HYPERCAPNIA (4) COPD with exacerbation Current Visit: Yes Status: Acute Code(s): J44.1 - CHRONIC OBSTRUCTIVE PULMONARY DISEASE W (ACUTE) EXACERBATION (5) Type 2 diabetes mellitus Current Visit: Yes Status: Acute Qualifiers: Diabetes mellitus long-term insulin use: with long-term use
[2016-09-20] MEDS: Acidophilus TABLET PO SCH (09:38)
[2016-09-20] MEDS: Effexor XR 75 MG PO SCH ×2 (09:38→22:27)
[2016-09-20] MEDS: Ativan 0.5 MG PO SCH ×2 (09:38→22:28)
[2016-09-20] MEDS: DELTASONE 20 MG PO SCH (09:38)
[2016-09-20] MEDS: ECOTRIN 81 MG PO SCH (09:38)
[2016-09-20] MEDS: Bystolic 5 MG PO SCH ×2 (09:38→22:27)
[2016-09-20] MEDS: SYNTHROID 100 MCG PO SCH (09:39)
[2016-09-20] MEDS: FEOSOL 325 MG PO SCH (09:39)
[2016-09-20] MEDS: Klor Con 10 MEQ PO SCH ×2 (09:39→22:28)
[2016-09-20] MEDS: Imdur 60MG PO SCH (09:39)
[2016-09-20] MEDS: Vitamin B-12 500 MCG PO SCH (09:40)
[2016-09-20] MEDS: Lantus Insulin SQ SCH (09:40)
[2016-09-20] MEDS: Lasix 40 MG PO SCH (09:40)
[2016-09-20] MEDS: Namenda 5 MG PO SCH ×2 (09:40→22:27)
[2016-09-20] MEDS ORDERED: ENOXAPARIN SODIUM SQ SCH (10:00)
[2016-09-20] MEDS: NovoLOG Insulin SQ PRN ×3 (11:56→22:29)
[2016-09-20] MEDS ORDERED: TROUGH DRUG LEVELS IJ ONE (17:30)
[2016-09-20] MEDS: VANCOCIN 1 GM VIAL*** 1 GM in Sodium Chloride 0.9% 250 ML 250 ML IV SCH (18:39)
[2016-09-21] MEDS: Zosyn 2.25 GM 2.25 GM in D5w 100ML Mini Bag 100 ML 100 ML IV SCH ×3 (03:05→17:05)
[2016-09-21 06:37] LABS: ANION GAP 13.9 MEQ/L (5-15); Carbon Dioxide 29.3 mEq/L (21-32); MAGNESIUM 1.3 mg/dL (1.8-2.4); Potassium 3.7 mEq/L (3.5-5.1)
[2016-09-21] MEDS: DUONEB 0.5-3 MG/3 ml Neb IH SCH ×2 (06:55→10:30)
[2016-09-21] MEDS: Magnesium 1 Gm / 100 Ml D5W*** 100 ML IV SCH ×2 (08:24→09:13)
--- NOTE | 2016-09-21 08:37 | XRAY ---
Indication: Hemoptysis. Comparison: September 19, 2016. Portable chest demonstrates again bilateral mid to lower lung infiltrates/atelectasis/effusion with minimal left lung improvement and stable right lung. New right apical infiltrate/atelectasis. Heart is not enlarged.
[2016-09-21] MEDS: Klor Con 10 MEQ PO SCH ×3 (09:15→22:48)
[2016-09-21] MEDS: DELTASONE 20 MG PO SCH (09:15)
[2016-09-21] MEDS: Cozaar 50 MG PO SCH (09:15)
[2016-09-21] MEDS: Lasix 40 MG PO SCH (09:15)
[2016-09-21] MEDS: Vitamin B-12 500 MCG PO SCH (09:15)
[2016-09-21] MEDS: Acidophilus TABLET PO SCH (09:15)
[2016-09-21] MEDS: SYNTHROID 100 MCG PO SCH (09:15)
[2016-09-21] MEDS: ECOTRIN 81 MG PO SCH (09:15)
[2016-09-21] MEDS: Effexor XR 75 MG PO SCH ×3 (09:15→22:48)
[2016-09-21] MEDS: Namenda 5 MG PO SCH ×3 (09:15→22:47)
[2016-09-21] MEDS: FEOSOL 325 MG PO SCH (09:15)
[2016-09-21] MEDS: Bystolic 5 MG PO SCH ×3 (09:20→22:47)
[2016-09-21] MEDS: Imdur 60MG PO SCH (09:20)
[2016-09-21] MEDS: Ativan 0.5 MG PO SCH ×2 (09:20→22:47)
[2016-09-21] MEDS: Lantus Insulin SQ SCH ×2 (10:47→12:26)
[2016-09-21 11:23] LABS: Mean Platelet Volume 9.8 fl (6-9.5); Platelet Count 227 K/mm3 (150-450); Red Blood Count 4.07 M/mm3 (4.1-5.4); Red Cell Distribution Width 15.8 % (11.5-14.0); White Blood Count 13.9 K/mm3 (4.0-10.5)
[2016-09-21 11:27] LABS: Mean Corpuscular Hemoglobin 26.2 pg (26-32)
[2016-09-21] MEDS: NovoLOG Insulin SQ PRN ×2 (12:24→22:36)
[2016-09-21 12:53] LABS: Platelet Estimate NORMAL (NORMAL); Total Cells Counted 100
[2016-09-21] MEDS: VANCOCIN 1 GM VIAL*** 1 GM in Sodium Chloride 0.9% 250 ML 250 ML IV SCH (17:08)
--- NOTE | 2016-09-21 17:18 | PCM.NOTE ---
Date and Time: 09/21/16 171 Subjective Assessment: she is actually looking better today and was doing better yesterday eating and helped with her transfer and more alert. She is more alert today talking more appropriate however just before exam she coughed up a large amount of bloody mucous which is new and she has not been having any bloody sputum. Objective Exam General Appearance: no apparent distress, obese Neurologic Exam: alert, No oriented x 3 Skin Exam: warm, dry Eye Exam: pale conjunctivae, No scleral icterus Ears, Nose, Throat Exam: dry mucous membranes Neck Exam: non-tender, supple Respiratory Exam: crackles/rales, rhonchi, wheezing Cardiovascular Exam: regular rate/rhythm, murmur Gastrointestinal/Abdomen Exam: soft, normal bowel sounds, No tenderness Extremity Exam: No calf tenderness, No pedal edema OBJECTIVE DATA Vital Signs: Vital Signs - 24 hr Temp Pulse Resp BP Pulse Ox 09/21/16 12:00 97.7 F 78 18 108/52 92 L 09/21/16 10:49 71 16 92 L 09/21/16 08:00 98.1 F 72 18 157/70 95 09/21/16 06:55 63 16 94 L 09/21/16 04:00 98.6 F 66 20 172/77 96 09/21/16 00:00 97.9 F 71 20 166/77 96 09/20/16 20:00 98.5 F 76 20 154/72 97 09/20/16 19:11 74 18 96 Oxygen-Last 24 hours O2 Percentage 3 Liters = 32% O2 Percentage 3 Liters = 32% O2 Percentage 3 Liters = 32% O2 Percentage 3 Liters = 32% O2 Percentage 3 Liters = 32% Pain Assessment - Last Documented Pain Intensity 0 Pain Scale Used 0-10 Pain Scale Intake and Output: Intake & Output 09/19/16 09/20/16 09/21/16 09/22/16 11:59 11:59 11:59 11:59 Intake Total 884 3081 930 Output Total 4800 2600 1500 Balance -3916 481 -570 Weight 97.205 kg 97.205 kg 93.894 kg Lab Results: Accuchecks Date 09/21/16 Date 09/21/16 Date 09/21/16 Date 09/20/16 Time 11:30 Time 07:30 Time 22:00 Accucheck Value: 203 Accucheck Value: 203 Accucheck Value: 72 Accucheck Value: 224 Lab Results-Last 24 Hours 09/20/16 09/21/16 09/21/16 Range/Units 17:35 05:00 05:22 WBC 13.9 H (4.0-10.5) K/mm3 RBC 4.07 L (4.1-5.4) M/mm3 Hgb 10.7 L (12.0-16.0) gm/dl Hct 34.2 L (35-47) % MCV 84.0 (78-100) fl MCH 26.2 (26-32) pg MCHC 31.3 L (32-36) g/dl RDW 15.8 H (11.5-14.0) % Plt Count 227 (150-450) K/mm3 MPV 9.8 H (6-9.5) fl Segmented Neutrophils 79 H (36.0-66.0) % Lymphocytes (Manual) 18 L (24-44) % Monocytes (Manual) 3 (0.0-12.0) % Differential Comment NORMAL Platelet Estimate NORMAL (NORMAL) Sodium 146 H (136-145) mEq/L Potassium 3.7 (3.5-5.1) mEq/L Chloride 106 (98-107) mEq/L Carbon Dioxide 29.3 (21-32) mEq/L Anion Gap 13.9 (5-15) MEQ/L BUN 26 H (9-20) mg/dL Creatinine 0.99 (0.55-1.30) mg/dl Estimated GFR 56 ML/MIN Glucose 85 (70-110) MG/DL Calcium 8.0 L (8.5-10.1) mg/dL Magnesium 1.3 L (1.8-2.4) mg/dL NT-Pro-B Natriuret Pep 1779 H (0-450) pg/ml Vancomycin Trough 11.5 (10-20) UG/ML Radiology Exams: Radiology Procedures Category Date Time Status CHEST 1 VIEW (PORTABLE) Routine Exams 09/21/16 08:03 Completed Multi-Disciplinary Progress Notes: Multi-Disciplinary Progress Notes 09/20/16 19:23 Respiratory Note by Curly Arceo PLACED PT BACK ON 3LPM POST TX. Initialized on 09/20/16 19:23 - END OF NOTE Assessment/Plan (1) Hemoptysis Current Visit: Yes Status: Acute Assessment & Plan: new finding today otherwise appears clinically improving will stop the lovenox and aspirin check a chest x-ray continue the vanc and zosyn and check a cbc. setheresa doesn't appear in distress her mouth is very dry and it is possible it is upper airway but not much in her mouth or nose consistent with blood continue to monitor continue vanc / zosyn for hcap her fluid status seems improving with lower bnp her renal function is improving back to her near her baseline as well. if no further bleeding and continues to improve plan for back to [place]' tomorrow replace her manesium and restart losartan with the improvign renal function and worsening htn Code(s): R04.2 - HEMOPTYSIS (2) HCAP (healthcare-associated pneumonia) Current Visit: Yes Status: Acute Code(s): J18.9 - PNEUMONIA, UNSPECIFIED ORGANISM (3) Acute kidney injury Current Visit: Yes Status: Acute Code(s): N17.9 - ACUTE KIDNEY FAILURE, UNSPECIFIED (4) Acute and chronic respiratory failure Current Visit: Yes Status: Acute Qualifiers: Respiratory failure complication: hypoxia Qualified Code(s): J96.21 - Acute and chronic respiratory failure with hypoxia Code(s): J96.20 - ACUTE AND CHR RESP FAILURE, UNSP W HYPOXIA OR HYPERCAPNIA (5) COPD with exacerbation Current Visit: Yes Status: Acute Code(s): J44.1 - CHRONIC OBSTRUCTIVE PULMONARY DISEASE W (ACUTE) EXACERBATION (6) Type 2 diabetes mellitus Current Visit: Yes Status: Acute Qualifiers: Diabetes mellitus shelter insulin use: with termite technician use
[2016-09-22] MEDS: Zosyn 2.25 GM 2.25 GM in D5w 100ML Mini Bag 100 ML 100 ML IV SCH ×2 (04:37→09:54)
--- NOTE | 2016-09-22 08:24 | PCM.DCORD ---
- Discharge Discharge Date: 09/22/16 Disposition: DC TO [facility] Condition: Fair Prescriptions: New Prednisone 20 mg [Deltasone 20 mg] 40 mg PO DAILY #0 tablet Doxycycline Hyclate 100 mg [Vibramycin 100 MG] 100 mg PO BID #10 tab Continue Potassium Chloride 10 Meq Tab* [Klor Con 10 MEQ] 10 meq PO DAILY Mirabegron [Myrbetriq] 25 mg PO DAILY Memantine HCl [Namenda Xr] 7 mg PO HS Insulin Detemir [Levemir Flexpen] 40 unit SQ DAILY Isosorbide Mononitrate 60 mg [Imdur 60MG] 60 mg PO DAILY Loperamide HCl [Imodium A-D] 2 mg PO DAILY Venlafaxine HCl [Effexor Xr] 150 mg PO BID Gabapentin 100 mg PO HS Torsemide [Demadex] 5 mg PO DAILY Losartan Potassium [Cozaar] 100 mg PO DAILY Ubidecarenone [Coenzyme Q10] 100 mg PO DAILY Nebivolol HCl [Bystolic] 10 mg PO BID Bifidobacterium Infantis [Align] 4 mg PO DAILY Atorvastatin Calcium 80 mg PO HS Acetaminophen 325 mg [Tylenol 325 mg] 650 mg PO Q4-6HPRN PRN PRN Reason: Fever Ferrous Sulfate 325 mg [Feosol 325 mg] 325 mg PO DAILY Aspirin [[place] Aspirin] 81 mg PO DAILY Ubidecarenone/Vit E Acetate [Co Q-10 100 mg Softgel] 1 each PO DAILY Cyanocobalamin 500 Mcg [Vitamin B-12 500 MCG] 1,000 mcg PO DAILY Levothyroxine Sodium 100 Mcg [Synthroid 100 Mcg] 100 mcg PO DAILY Ibuprofen 200 mg [Motrin 200 mg] 200 mg PO Q8HPRN PRN PRN Reason: Pain Bifidobacterium Infantis [Align] 4 mg PO DAILY Discontinued Prednisone 20 mg [Deltasone 20 mg] 20 mg PO DAILY Instructions: Chronic Obstructive Pulmonary Disease Follow up with: SILVA LANDERS [Primary Care Provider] -
[2016-09-22] MEDS: Klor Con 10 MEQ PO SCH (08:31)
--- NOTE | 2016-09-22 08:31 | PCM.DS ---
Discharge Summary Date of Admission: 09/17/16 05:30 Date of Discharge: 09/22/16 Admitting Physician: SILVA LANDERS Primary Care Provider: SILVA LANDERS Allergies Allergies cephalexin Allergy (Verified 09/16/16 13:35) codeine Allergy (Verified 09/16/16 13:35) latex Allergy (Verified 09/16/16 13:35) meperidine Allergy (Verified 09/16/16 13:35) Sulfa (Sulfonamide Antibiotics) Allergy (Verified 09/16/16 13:35) Hospital Summary - Hospital Course Hospital Course: Mr. Calabrese lives in residential with mild to moderate dementia as well as COPD who developed influenza A a few weeks ago and struggled getting over it. SHe was slightly improving then began to worsen was not eating or drinking very weak. SHort of breath and respiratory difficulty. SHe was admitted and found to have pneumonia as well as acute kidney injury. She was treated with vancomycin and zosyn for 6 days and her nephrotoxic agents were initially held and fluid gentle rehydration was done with improvement in renal function but then she began developing pulmonary edema and treated with iv lasix and improved with good diuresis. Her renal function is improved we had planned for discharge yesterday however she developed new hemoptysis on 09/21/16 bloody red mucous first thing in the morning. She had no recurrence of this throughout the day or overnight. REpeat CXR showed a new area of infiltrate right upper lobe but improved effusions. Clinically she continued to improve and had improved mental status and appetite and no fevers. She continues with the wet cough and wheezing but improving. Her lovenox and aspirin where held with the hemoptysis but will restart the aspirin on discharge as it seems likely it was actually upper airway in source. With her improvement yesterday and today will get her back to [facility] with a steroid taper and prolong antibiotic coarse for 5 more days with doxycycline. - Vitals & Intake/Output Vital Signs: Vital Signs Temperature 97.8 F 09/22/16 07:25 Pulse Rate 80 09/22/16 07:25 Respiratory Rate 20 09/22/16 07:25 Blood Pressure 170/80 09/22/16 07:25 O2 Sat by Pulse Oximetry 96 09/22/16 07:25 Oxygen-Last Documented O2 Percentage 3 Liters = 32% Intake & Output: Intake & Output 0309/20/16 09/21/16 09/22/16 11:59 11:59 11:59 11:59 Intake Total 884 3081 930 1600 Output Total 4800 2600 1500 1350 Balance -3916 481 -570 250 Weight 97.205 kg 97.205 kg 93.894 kg 94.302 kg - Lab Result Diagrams: 09/21/16 05:00 09/21/16 05:22 Lab Results-Last 24 Hrs: Accuchecks Date 09/21/16 Date 09/21/16 Date 09/21/16 Time 16:30 Time 11:30 Accucheck Value: 210 Accucheck Value: 189 Accucheck Value: 203 Accucheck Value: 203 Lab Results-Last 24 Hours 09/21/16 09/22/16 Range/Units 05:00 05:02 WBC 13.9 H (4.0-10.5) K/mm3 RBC 4.07 L (4.1-5.4) M/mm3 Hgb 10.7 L (12.0-16.0) gm/dl Hct 34.2 L (35-47) % MCV 84.0 (78-100) fl MCH 26.2 (26-32) pg MCHC 31.3 L (32-36) g/dl RDW 15.8 H (11.5-14.0) % Plt Count 227 (150-450) K/mm3 MPV 9.8 H (6-9.5) fl Segmented Neutrophils 79 H (36.0-66.0) % Lymphocytes (Manual) 18 L (24-44) % Monocytes (Manual) 3 (0.0-12.0) % Differential Comment NORMAL Platelet Estimate NORMAL (NORMAL) Magnesium 1.7 L (1.8-2.4) mg/dL Micro Results-Entire Visit: Microbiology 09/18/16 15:30 Urine Culture - Final Urine, Indwelling Catheter Yeast Species Accuchecks Date 09/21/16 Date 09/21/16 Date 09/21/16 Time 16:30 Time 11:30 Accucheck Value: 210 Accucheck Value: 189 Accucheck Value: 203 Accucheck Value: 203 - Radiology Exams Ordered Rad Exams-Entire Visit: Radiology Procedures Category Date Time Status CHEST 1 VIEW (PORTABLE) Routine Exams 09/21/16 08:03 Completed - Procedures and Test Procedures and Tests throughout Hospitalization: Therapy Orders & Screens 09/21/16 15:08 Respiratory Nebulizer Comment: ZOË Q4PRN Diagnosis: Exac. COPD, Pneumonia, CHF Discharge Exam General Appearance: no apparent distress Neurologic Exam: alert, cooperative, No oriented x 3 Skin Exam: warm, dry Ears, Nose, Throat Exam: dry mucous membranes Neck Exam: normal inspection, non-tender, supple Respiratory Exam: wheezing, No respiratory distress Cardiovascular Exam: regular rate/rhythm, murmur Gastrointestinal/Abdomen Exam: soft, normal bowel sounds, No tenderness Extremity Exam: normal inspection, No calf tenderness, No pedal edema Final Diagnosis/Problem List - Final Discharge Diagnosis/Problem (1) Hemoptysis Current Visit: Yes Status: Acute (2) HCAP (healthcare-associated pneumonia) Current Visit: Yes Status: Acute (3) Acute kidney injury Current Visit: Yes Status: Acute (4) Acute and chronic respiratory failure Current Visit: Yes Status: Acute (5) COPD with exacerbation Current Visit: Yes Status: Acute (6) Type 2 diabetes mellitus Current Visit: Yes Status: Acute - Discharge Discharge Date: 09/22/16 Disposition: DC TO [facility] Condition: Fair Prescriptions: New Prednisone 20 mg [Deltasone 20 mg] 40 mg PO DAILY #0 tablet Doxycycline Hyclate 100 mg [Vibramycin 100 MG] 100 mg PO BID #10 tab Continue Potassium Chloride 10 Meq Tab* [Klor Con 10 MEQ] 10 meq PO DAILY Mirabegron [Myrbetriq] 25 mg PO DAILY Memantine HCl [Namenda Xr] 7 mg PO HS Insulin Detemir [Levemir Flexpen] 40 unit SQ DAILY Isosorbide Mononitrate 60 mg [Imdur 60MG] 60 mg PO DAILY Loperamide HCl [Imodium A-D] 2 mg PO DAILY Venlafaxine HCl [Effexor Xr] 150 mg PO BID Gabapentin 100 mg PO HS Torsemide [Demadex] 5 mg PO DAILY Losartan Potassium [Cozaar] 100 mg PO DAILY Ubidecarenone [Coenzyme Q10] 100 mg PO DAILY Nebivolol HCl [Bystolic] 10 mg PO BID Bifidobacterium Infantis [Align] 4 mg PO DAILY Atorvastatin Calcium 80 mg PO HS Acetaminophen 325 mg [Tylenol 325 mg] 650 mg PO Q4-6HPRN PRN PRN Reason: Fever Ferrous Sulfate 325 mg [Feosol 325 mg] 325 mg PO DAILY Aspirin [[place] Aspirin] 81 mg PO DAILY Ubidecarenone/Vit E Acetate [Co Q-10 100 mg Softgel] 1 each PO DAILY Cyanocobalamin 500 Mcg [Vitamin B-12 500 MCG] 1,000 mcg PO DAILY Levothyroxine Sodium 100 Mcg [Synthroid 100 Mcg] 100 mcg PO DAILY Ibuprofen 200 mg [Motrin 200 mg] 200 mg PO Q8HPRN PRN PRN Reason: Pain Bifidobacterium Infantis [Align] 4 mg PO DAILY Discontinued Prednisone 20 mg [Deltasone 20 mg] 20 mg PO DAILY Instructions: Chronic Obstructive Pulmonary Disease Follow up with: SILVA LANDERS [Primary Care Provider] -
[2016-09-22] MEDS: Acidophilus TABLET PO SCH (08:32)
[2016-09-22] MEDS: Namenda 5 MG PO SCH (08:32)
[2016-09-22] MEDS: Bystolic 5 MG PO SCH (08:32)
[2016-09-22] MEDS: DELTASONE 20 MG PO SCH (08:32)
[2016-09-22] MEDS: Effexor XR 75 MG PO SCH (08:32)
[2016-09-22] MEDS: FEOSOL 325 MG PO SCH (08:32)
[2016-09-22] MEDS: Ativan 0.5 MG PO SCH (08:33)
[2016-09-22] MEDS: Vitamin B-12 500 MCG PO SCH (08:33)
[2016-09-22] MEDS: Imdur 60MG PO SCH (08:33)
[2016-09-22] MEDS: Cozaar 50 MG PO SCH (08:33)
[2016-09-22] MEDS: SYNTHROID 100 MCG PO SCH (08:33)
[2016-09-22] MEDS: Lasix 40 MG PO SCH (08:33)
[2016-09-22] MEDS: Lantus Insulin SQ SCH (09:53)
[2016-09-22] MEDS ORDERED: DIFLUCAN PO ONE (10:00)
[2016-09-22 11:05] VITALS: BP 174/78; PULSE 87; O2SAT 95
== END 2016-09-22 11:05 | DRG 204 ==
LOC: ED 11:56 → MED SURG 14:32 → UNDOADMOB 14:32 → INTOOBSV 09-17 05:30 → OBSVTOIN 09-17 05:30 → MED SURG 09-17 05:30
PROVIDERS: ADMIT Family Medicine; ATTEND Family Medicine
DX: R04.2 Hemoptysis (principal); J18.9 Pneumonia, unspecified organism; J96.20 Acute and chronic respiratory failure, unspecified whether with hypoxia or hypercapnia; N17.9 Acute kidney failure, unspecified; J44.1 Chronic obstructive pulmonary disease with (acute) exacerbation; Y95 Nosocomial condition; E11.40 Type 2 diabetes mellitus with diabetic neuropathy, unspecified; I25.10 Atherosclerotic heart disease of native coronary artery without angina pectoris; I10 Essential (primary) hypertension; E11.9 Type 2 diabetes mellitus without complications; N32.81 Overactive bladder; G47.30 Sleep apnea, unspecified; E03.9 Hypothyroidism, unspecified; I50.9 Heart failure, unspecified; F03.90 Unspecified dementia, unspecified severity, without behavioral disturbance, psychotic disturbance, mood disturbance, and anxiety; Z79.899 Other long term (current) drug therapy; Z85.038 Personal history of other malignant neoplasm of large intestine
CPT/HCPCS: 36415; 71010; 80048; 80053; 80202; 81000; 82805; 82962; 83605; 83735; 83880; 84134; 84484; 85025; 87040; 87070; 87077; 87086; 93005; 93041; 93268; 94640; 94760; 96360; 96365; 99285; A9270; G0378; J1644; J1650; J1940; J1956; J2543; J2920; J3370; J3475; P9612

== ENCOUNTER 2016-11-24 19:50 | Emergency (ER) | payer MEDICARE, BC ==
[2016-11-24 20:02] VITALS: BP 124/53; PULSE 80; O2SAT 94
[2016-11-24] MEDS ORDERED: Sodium Chloride 0.9% 1000 ML 0 ML ONE (20:34)
--- NOTE | 2016-11-24 20:36 | ERPHSYRPT ---
- History of Present Illness Time Seen by Provider: 11/24/16 20:13 Source: patient, family (SON) Exam Limitations: no limitations Patient Subjective Stated Complaint: patient was attempting to sit down from standing at walker into the wheelchair and fell back against the metal railing on the wc, striking the back of the head - moderate bleeding at the scene which is resolved now - sent to hospital for wound care - [facility] staff deny any loss of consciousness - pt denies any pain at this time et refuses to wear cervical collar - pt is pleasantly confused per normal dementia state Triage Nursing Assessment: lifted to cart per EMS personnel - moves all extremities with equal strength. a/o x 3 - pleasant affect/cooperative. resps easy - non-labored. skin pwd - with matted blood over the wound at the occiput. FSBS: 58 Physician History: ABOUT 45 MINUTES AGO AT THE [facility] PT WAS TRYING TO GET UP FROM A WHEELCHAIR, THE BRAKE WAS NOT ENGAGED AND THE WHEELCHAIR TIPPED OVER WITH PT HITTING THE BACK OF HER HEAD ON THE METAL PART OF THE WHEELCHAIR WITH RESULTANT SCALP HEMATOMA AND BRUISING ON THE RIGHT FOREARM. PT DENIES CHEST PAIN, ABDOMINAL PAIN, NAUSEA, VOMITING. Allergies/Adverse Reactions: cephalexin Allergy (Verified 11/24/16 19:51) codeine Allergy (Verified 11/24/16 19:51) latex Allergy (Verified 11/24/16 19:51) meperidine Allergy (Verified 11/24/16 19:51) Sulfa (Sulfonamide Antibiotics) Allergy (Verified 11/24/16 19:51) Home Medications: Acetaminophen 325 mg [Tylenol 325 mg] 650 mg PO Q4-6HPRN PRN 09/15/15 [ History] Atorvastatin Calcium 80 mg PO HS 09/15/15 [History] Bifidobacterium Infantis [Align] 4 mg PO DAILY 09/15/15 [History] Gabapentin 100 mg PO HS 09/15/15 [History] Insulin Detemir [Levemir Flexpen] 40 unit SQ DAILY 09/15/15 [History] Isosorbide Mononitrate 60 mg [Imdur 60MG] 60 mg PO DAILY 09/15/15 [History] Loperamide HCl [Imodium A-D] 2 mg PO DAILY 09/15/15 [History] Losartan Potassium [Cozaar] 100 mg PO DAILY 09/15/15 [History] Memantine HCl [Namenda Xr] 7 mg PO HS 09/15/15 [History] Mirabegron [Myrbetriq] 25 mg PO DAILY 09/15/15 [History] Nebivolol HCl [Bystolic] 10 mg PO BID 09/15/15 [History] Potassium Chloride 10 Meq Tab* [Klor Con 10 MEQ] 10 meq PO DAILY 09/15/15 [ History] Torsemide [Demadex] 5 mg PO DAILY 09/15/15 [History] Ubidecarenone [Coenzyme Q10] 100 mg PO DAILY 09/15/15 [History] Venlafaxine HCl [Effexor Xr] 150 mg PO BID 09/15/15 [History] Aspirin [[place] Aspirin] 81 mg PO DAILY 09/16/16 [History] Bifidobacterium Infantis [Align] 4 mg PO DAILY 09/16/16 [History] Cyanocobalamin 500 Mcg [Vitamin B-12 500 MCG] 1,000 mcg PO DAILY 09/16/16 [History] Ferrous Sulfate 325 mg [Feosol 325 mg] 325 mg PO DAILY 09/16/16 [History] Ibuprofen 200 mg [Motrin 200 mg] 200 mg PO Q8HPRN PRN 09/16/16 [History] Levothyroxine Sodium 100 Mcg [Synthroid 100 Mcg] 100 mcg PO DAILY 09/16/16 [History] Ubidecarenone/Vit E Acetate [Co Q-10 100 mg Softgel] 1 each PO DAILY 09/16/16 [ History] Hx Tetanus, Diphtheria Vaccination/Date Given: No Hx Influenza Vaccination/Date Given: Yes Hx Pneumococcal Vaccination/Date Given: No Immunizations Up to Date: Yes - Review of Systems Cardiac: No Chest Pain Abdominal/Gastrointestinal: No Abdominal Pain, No Nausea, No Vomiting Skin: Other (BRUISING ON RIGHT FOREARM; SCALP ABRASION.) All Other Systems: Reviewed and Negative - Past Medical History Pertinent Past Medical History: Yes Neurological History: Dementia Cardiac History: Coronary Artery Disease, High Cholesterol, Hypertension Respiratory History: COPD Endocrine Medical History: Diabetes Type II, Hypothyroidism Musculoskeletal History: No Pertinent History GI Medical History: No Pertinent History History: No Pertinent History Psycho-Social History: Depression Female Reproductive Disorders: No Pertinent History Other Medical History: overactive bladder, sleep apnea, diabetic neuropathy, angina, colon CA - Past Surgical History Past Surgical History: No Gastrointestinal: Appendectomy, Colon Resection Female Surgical History: Hysterectomy Other Surgical History: unknown - Social History Smoking Status: Never smoker Exposure to second hand smoke: No Drug Use: none Patient Lives Alone: No - Female History Hx Last Menstrual Period: n/a - Nursing Vital Signs Nursing Vital Signs: Initial Vital Signs Pulse Rate 80 Respiratory Rate 16 Blood Pressure [] 124/53 Pain Intensity 0 - Physical Exam General Appearance: alert Eye Exam: PERRL/EOMI Ears, Nose, Throat Exam: pharynx normal, moist mucous membranes, other (CERUMEN OCCLUSION OF LEFT EAR) Neck Exam: normal inspection Respiratory Exam: crackles/rales (MILD RALES OVER ALL MEADOWS) Cardiovascular Exam: murmur (2/6 SYSTOLIC MURMUR ) Gastrointestinal/Abdomen Exam: soft, normal bowel sounds Rectal Exam: normal rectal tone, No tenderness Back Exam: normal inspection, No vertebral tenderness Extremity Exam: other (ECCHYMOSIS ~ 1 CM DIAMETER(X2) ON MID DORSAL ASPECT OF RIGHT FOREARM.) Neurologic Exam: alert, cooperative, No sensation nml (DECREASED SENSATION IN FEET(ONGOING - NEUOPATHY).) Skin Exam: abrasion (TENDERNESS OVER A 1 CM LINEAR ABRASION OVER MILD EDEMA ON THE MID OCCIPITAL AREA.), pale SpO2 Interpretation: normal SpO2: 94 Oxygen Delivery: Room Air - Course Nursing assessment & vital signs reviewed: Yes EKG Interpreted by Me: RATE (70), Sinus Rhythm, NORMAL AXIS, NORMAL INTERVALS - CT Exams Head CT Interpretation: Discussed w/radiologist (STABLE NON-ACUTE SENILE BRAIN.) Cervical Spine CT Interpretation: Discussed w/radiologist (NEGATIVE FOR FX OR SUBLUXATION. STABLE MULTILEVEL DDD. NEW PATCHY BIAPICAL AIR SPACE OPACITIES.) Ordered Tests: Active Orders 24 hr Category Date Time Status ACCUCHECK [Accucheck] STAT Care 11/24/16 20:49 Active EKG-ER Only STAT Care 11/24/16 21:33 Active IV Insertion STAT Care 11/24/16 20:28 Active CERVICAL SPINE WO CONTRAST [CT] Stat Exams 11/24/16 20:27 Taken CHEST 1 VIEW (PORTABLE) Stat Exams 11/24/16 20:29 Taken FOREARM Stat Exams 11/24/16 20:27 Taken HEAD WITHOUT CONTRAST [CT] Stat Exams 11/24/16 20:27 Taken BLOOD CULTURE Stat Lab 11/24/16 23:14 Received CBC W DIFF Stat Lab 11/24/16 20:54 Completed CMP Stat Lab 11/24/16 20:54 Completed CULTURE,URINE Stat Lab 11/24/16 21:55 Received D-DIMER QUANTITATION Stat Lab 11/24/16 20:40 Completed NT PRO BNP Stat Lab 11/24/16 20:45 Completed Occult Blood,Stool Other Stat Lab 11/24/16 23:16 Completed TROPONIN Stat Lab 11/24/16 20:54 Completed UA W/ MICROSCOPIC Stat Lab 11/24/16 21:57 Completed Medication Summary Generic Name Dose Route Start Last Admin Trade Name Freq PRN Reason Stop Dose Admin Furosemide 20 mg 11/25/16 10:00 Lasix 20 Mg/2 Ml IM 12/25/16 09:59 DAILY ANGELICA Sodium Chloride 1,000 mls @ 100 mls/hr 11/24/16 20:30 11/24/16 20:50 Sodium Chloride 0.9% 1000 Ml IV 12/24/16 20:29 Not Given .Q10H ANGELICA Levofloxacin 500 mg 11/24/16 23:25 Levofloxacin 500 Mg Tablet PO 11/24/16 23:26 STAT ONE Discontinued Medications Generic Name Dose Route Start Last Admin Trade Name Freq PRN Reason Stop Dose Admin Furosemide 20 mg 11/25/16 10:00 Lasix 20 Mg/2 Ml IV 12/25/16 09:59 DAILY ANGELICA Furosemide Confirm 11/24/16 22:04 Lasix 40 Mg/4 Ml Administered 11/24/16 22:05 Dose 40 mg .ROUTE .STK-MED ONE Levofloxacin/Dextrose 100 mls @ 100 mls/hr 11/24/16 22:36 11/24/16 23:24 Levofloxacin 500mg/100ml D5w IV 11/24/16 23:35 Not Given STAT ONE Levofloxacin/Dextrose Confirm 11/24/16 23:01 Levofloxacin 500mg/100ml D5w Administered 11/24/16 23:02 Dose 100 mls @ ud IV .STK-MED ONE Lab/Rad Data: Laboratory Result Diagrams 11/24/16 20:54 11/24/16 20:54 Laboratory Results 0511/24/16 11/24/16 Range/Units 23:16 21:57 20:54 WBC (4.0-10.5) K/mm3 RBC (4.1-5.4) M/mm3 Hgb (12.0-16.0) gm/dl Hct (35-47) % MCV (78-100) fl MCH (26-32) pg MCHC (32-36) g/dl RDW (11.5-14.0) % Plt Count (150-450) K/mm3 MPV (6-9.5) fl Gran % (36.0-66.0) % Lymphocytes % (24.0-44.0) % Monocytes % (0.0-12.0) % Eosinophils % (0.00-5.0) % Basophils % (0.0-0.4) % Basophils # (0-0.4) D-Dimer (0.00-0.49) mg/L Sodium (136-145) mEq/L Potassium (3.5-5.1) mEq/L Chloride (98-107) mEq/L Carbon Dioxide (21-32) mEq/L Anion Gap (5-15) MEQ/L BUN (9-20) mg/dL Creatinine (0.55-1.30) mg/dl Estimated GFR ML/MIN Glucose (70-110) MG/DL Calcium (8.5-10.1) mg/dL Total Bilirubin (0.2-1.0) mg/dL AST (15-37) U/L ALT (12-78) U/L Alkaline Phosphatase (46-116) U/L Troponin I < 0.017 (0.000-0.056) ng/ml NT-Pro-B Natriuret Pep (0-450) pg/ml Serum Total Protein (6.4-8.2) gm/dL Albumin (3.4-5.0) g/dL Ur Collection Type CLEAN CATCH Urine Color YELLOW (YELLOW) Urine Appearance CLOUDY (CLEAR) Urine pH 6.0 (5-6) Ur Specific [place] 1.015 (1.005-1.025) Urine Protein NEGATIVE (Negative) Urine Glucose (UA) NEGATIVE (NEGATIVE) mg/dL Urine Ketones NEGATIVE (NEGATIVE) Urine Nitrite NEGATIVE (NEGATIVE) Urine Bilirubin NEGATIVE (NEGATIVE) Urine Urobilinogen 0.2 (0-1) mg/dL Urine WBC (Auto) LARGE (NEGATIVE) Urine RBC (Auto) NEGATIVE (0-5) [place]/ul Urine Microscopic RBC 0-2 (0-2) /HPF Urine Microscopic WBC 25-50 (0-5) /HPF Ur Epithelial Cells MODERATE (FEW) /HPF Urine Bacteria PACKED (NEGATIVE) /HPF Stool Occult Blood NEGATIVE (Negative) Specimen Received 11/24/16 [id number] 11/24/16 11/24/16 11/24/16 Range/Units 20:54 20:54 20:45 WBC 8.8 (4.0-10.5) K/mm3 RBC 3.34 L (4.1-5.4) M/mm3 Hgb 8.8 L (12.0-16.0) gm/dl Hct 29.4 L (35-47) % MCV 88.0 (78-100) fl MCH 26.3 (26-32) pg MCHC 29.9 L (32-36) g/dl RDW 17.6 H (11.5-14.0) % Plt Count 242 (150-450) K/mm3 MPV 9.1 (6-9.5) fl Gran % 75.6 H (36.0-66.0) % Lymphocytes % 18.5 L (24.0-44.0) % Monocytes % 5.8 (0.0-12.0) % Eosinophils % 0.1 (0.00-5.0) % Basophils % 0.0 (0.0-0.4) % Basophils # 0 (0-0.4) D-Dimer (0.00-0.49) mg/L Sodium 140 (136-145) mEq/L Potassium 4.0 (3.5-5.1) mEq/L Chloride 106 (98-107) mEq/L Carbon Dioxide 28.4 (21-32) mEq/L Anion Gap 9.7 (5-15) MEQ/L BUN 13 (9-20) mg/dL Creatinine 0.74 (0.55-1.30) mg/dl Estimated GFR > 60 ML/MIN Glucose 106 (70-110) MG/DL Calcium 8.9 (8.5-10.1) mg/dL Total Bilirubin 0.2 (0.2-1.0) mg/dL AST 14 L (15-37) U/L ALT 7 L (12-78) U/L Alkaline Phosphatase 124 H (46-116) U/L Troponin I (0.000-0.056) ng/ml NT-Pro-B Natriuret Pep 1078 H (0-450) pg/ml Serum Total Protein 6.6 (6.4-8.2) gm/dL Albumin 2.5 L (3.4-5.0) g/dL Ur Collection Type Urine Color (YELLOW) Urine Appearance (CLEAR) Urine pH (5-6) Ur Specific [place] (1.005-1.025) Urine Protein (Negative) Urine Glucose (UA) (NEGATIVE) mg/dL Urine Ketones (NEGATIVE) Urine Nitrite (NEGATIVE) Urine Bilirubin (NEGATIVE) Urine Urobilinogen (0-1) mg/dL Urine WBC (Auto) (NEGATIVE) Urine RBC (Auto) (0-5) Clement[place]/ul Urine Microscopic RBC (0-2) /HPF Urine Microscopic WBC (0-5) /HPF Ur Epithelial Cells (FEW) /HPF Urine Bacteria (NEGATIVE) /HPF Stool Occult Blood (Negative) Specimen Received 11/24/16 Range/Units 20:40 WBC (4.0-10.5) K/mm3 RBC (4.1-5.4) M/mm3 Hgb (12.0-16.0) gm/dl Hct (35-47) % MCV (78-100) fl MCH (26-32) pg MCHC (32-36) g/dl RDW (11.5-14.0) % Plt Count (150-450) K/mm3 MPV (6-9.5) fl Gran % (36.0-66.0) % Lymphocytes % (24.0-44.0) % Monocytes % (0.0-12.0) % Eosinophils % (0.00-5.0) % Basophils % (0.0-0.4) % Basophils # (0-0.4) D-Dimer 2.413 H* (0.00-0.49) mg/L Sodium (136-145) mEq/L Potassium (3.5-5.1) mEq/L Chloride (98-107) mEq/L Carbon Dioxide (21-32) mEq/L Anion Gap (5-15) MEQ/L BUN (9-20) mg/dL Creatinine (0.55-1.30) mg/dl Estimated GFR ML/MIN Glucose (70-110) MG/DL Calcium (8.5-10.1) mg/dL Total Bilirubin (0.2-1.0) mg/dL AST (15-37) U/L ALT (12-78) U/L Alkaline Phosphatase (46-116) U/L Troponin I (0.000-0.056) ng/ml NT-Pro-B Natriuret Pep (0-450) pg/ml Serum Total Protein (6.4-8.2) gm/dL Albumin (3.4-5.0) g/dL Ur Collection Type Urine Color (YELLOW) Urine Appearance (CLEAR) Urine pH (5-6) Ur Specific [place] (1.005-1.025) Urine Protein (Negative) Urine Glucose (UA) (NEGATIVE) mg/dL Urine Ketones (NEGATIVE) Urine Nitrite (NEGATIVE) Urine Bilirubin (NEGATIVE) Urine Urobilinogen (0-1) mg/dL Urine WBC (Auto) (NEGATIVE) Urine RBC (Auto) (0-5) Clemente/ul Urine Microscopic RBC (0-2) /HPF Urine Microscopic WBC (0-5) /HPF Ur Epithelial Cells (FEW) /HPF Urine Bacteria (NEGATIVE) /HPF Stool Occult Blood (Negative) Specimen Received - Progress Discussed with : Qamar (SEND BACK TO [facility]) - Departure Time of Disposition: 23:29 Departure Disposition: Extended Care Facility Clinical Impression: UTI, HEAD CONTUSION, DEMENTIA, CAD, COPD, DM, HYPOTHYROIDISM, DEPRESSION Condition: Fair Critical Care Time: No Referrals: SILVA LANDERS [Primary Care Provider] - Instructions: Closed Head Injury, Urinary Tract Infection (UTI) Additional Instructions: FOLLOW UP WITH PRIVATE DOCTOR TOMORROW. Prescriptions: Levofloxacin [Levaquin] 500 mg PO DAILY #10 tablet
[2016-11-24] MEDS: Sodium Chloride 0.9% 1000 ML 1,000 ML IV SCH ×2 (20:48→20:50)
[2016-11-24 20:59] LABS: Eosinophil % 0.1 % (0.00-5.0); Granulocytes % 75.6 % (36.0-66.0); Lymphocytes % 18.5 % (24.0-44.0); Mean Corpuscular Hemoglobin 26.3 pg (26-32); Mean Platelet Volume 9.1 fl (6-9.5); Monocytes % 5.8 % (0.0-12.0); Platelet Count 242 K/mm3 (150-450); Red Blood Count 3.34 M/mm3 (4.1-5.4); Red Cell Distribution Width 17.6 % (11.5-14.0); White Blood Count 8.8 K/mm3 (4.0-10.5)
[2016-11-24 21:19] LABS: ALBUMIN 2.5 g/dL (3.4-5.0); ALKALINE PHOSPHATASE 124 U/L (46-116); ANION GAP 9.7 MEQ/L (5-15); BILIRUBIN,TOTAL 0.2 mg/dL (0.2-1.0); BLOOD UREA NITROGEN 13 mg/dL (9-20); CHLORIDE 106 mEq/L (98-107); Carbon Dioxide 28.4 mEq/L (21-32); Glucose 106 MG/DL (70-110); SGOT/AST 14 U/L (15-37); SGPT/ALT 7 U/L (12-78); SODIUM 140 mEq/L (136-145); Total Protein 6.6 gm/dL (6.4-8.2)
[2016-11-24] MEDS ORDERED: Lasix 40 MG/4 ML ONE (22:04)
[2016-11-24 22:16] LABS: Bacteria PACKED /HPF (NEGATIVE); COMPLETE URINE MICROSCOPIC? YES; Collection Type CLEAN CATCH; Epithelial Cells MODERATE /HPF (FEW); WBC 25-50 /HPF (0-5)
[2016-11-24] MEDS ORDERED: Levofloxacin 500MG/100ML D5W 100 ML IV ONE (22:36)
[2016-11-24] MEDS ORDERED: D5W IV ONE (23:01)
[2016-11-24] MEDS ORDERED: LEVOFLOXACIN 500 MG/100 ML IV ONE (23:01)
[2016-11-24] MEDS ORDERED: Levofloxacin 500 MG Tablet PO ONE (23:25)
[2016-11-24] MEDS ORDERED: Levofloxacin 500 MG Tablet ONE (23:27)
--- NOTE | 2016-11-25 08:53 | XRAY ---
Indication: Headache injury following fall. Multiple contiguous axial images obtained through the head without contrast. Comparison: December 22, 2015. Images through the base of the brain slightly degraded by motion artifact. Stable age-appropriate global atrophy and minimal periventricular degenerative micro-ischemia. No acute intracranial hemorrhage, abnormal extra-axial fluid collection, or mass effect. Fourth ventricle is midline without hydrocephalus. Bony calvarium intact. Visualized paranasal sinuses and mastoid air cells are clear. Impression: Stable nonacute senile brain. CT DI 59.80
--- NOTE | 2016-11-25 08:56 | XRAY ---
Indication: Head/neck injury following fall. Multiple contiguous axial images obtained through the cervical spine. Sagittal and coronal reformatted images obtained. Comparison: None Axial images negative for acute fracture, suspicious bony lesions, or spinal canal stenosis. Again mild degenerative changes of the atlantoaxial articulation and minimal degenerative endplate spurring at C5-C7 levels. Sagittal and coronal reformatted images demonstrates normal alignment with again minimal C3-C4 and C5-C7 degenerative disc space narrowing. No acute compression fracture, subluxation, or jumped facet. Normal-appearing craniocervical junction. Visualized noncontrasted soft tissues demonstrates mild carotid calcifications bilaterally. Lung apices demonstrates new minimal patchy airspace opacities. Impression: 1. Again negative for acute fracture/subluxation. 2. Stable multilevel degenerative changes. 3. New biapical patchy airspace disease. CT DI 120.93
--- NOTE | 2016-11-25 09:12 | XRAY ---
Indication: Status post fall. Comparison: September 21, 2016. Portable chest better inflated today again with chronic lung markings. Previous bilateral lower lung infiltrates/atelectasis has improved with small trace still present. Previous right apical infiltrate has cleared. Stable left lung calcified granuloma. Heart is not enlarged. Impression: Lungs have improved as detailed above. No new cardiopulmonary abnormalities.
--- NOTE | 2016-11-25 09:12 | XRAY ---
Indication: Pain following fall. Comparison: None 2 views of the right forearm demonstrates mild osteopenia. No other bony, articular, or soft tissue abnormalities.
[2016-11-25] MEDS ORDERED: Lasix 20 MG/2 ML IV SCH (10:00)
[2016-11-25] MEDS ORDERED: Lasix 20 MG/2 ML IM SCH (10:00)
== END 2016-11-24 23:41 | disposition home or self-care (01) ==
LOC: ED 19:50
DX: N39.0 Urinary tract infection, site not specified (principal); S00.93XA Contusion of unspecified part of head, initial encounter; F03.90 Unspecified dementia, unspecified severity, without behavioral disturbance, psychotic disturbance, mood disturbance, and anxiety; I25.10 Atherosclerotic heart disease of native coronary artery without angina pectoris; J44.9 Chronic obstructive pulmonary disease, unspecified; E11.9 Type 2 diabetes mellitus without complications; E03.9 Hypothyroidism, unspecified; F32.9 Major depressive disorder, single episode, unspecified; W01.198A Fall on same level from slipping, tripping and stumbling with subsequent striking against other object, initial encounter; R41.0 Disorientation, unspecified; Z79.899 Other long term (current) drug therapy
CPT/HCPCS: 36415; 70450; 71010; 72125; 73090; 80053; 81000; 82272; 82962; 83880; 84484; 85025; 85379; 87040; 87077; 87086; 87186; 93005; 96372; 99284; 99285; J1940; J1956; A9270-GY